=== PATIENT | male | born 1995 | race Caucasian/White ===

== ENCOUNTER 2024-10-15 10:21 | Day surgery (SDC) | payer OTHER, SELFPAY ==
[2024-10-09 12:05] VITALS: BMI 25.1
[2024-10-15 11:11] VITALS: BP 131/73; PULSE 67; RESP 16; TEMP 36.8; O2SAT 100; BMI 24.9
[2024-10-15] MEDS: LACTATED RINGERS 1,000 ML 42 ML IV (11:19)
[2024-10-15] MEDS: OXYMETAZOLINE NASAL SPRAY 30 ML 2 SPRAYS NASAL (11:19)
[2024-10-15] MEDS: ACETAMINOPHEN 325 MG TABLET 975 MG PO (11:35)
--- NOTE | 2024-10-15 11:53 | PM.PREOP ---
Pre-operative Note Interval Note History & Physical reviewed/Exam performed by Physician: Yes Changes to H&P: No
--- NOTE | 2024-10-15 11:53 | PM.HP.1 ---
History of Present Illness History of Present Illness Date Patient Seen: 10/15/24 Time Patient Seen: 11:53 Chief complaint: SDC Narrative: 29-year-old male last seen in clinic 08/18/2025 for chronic nasal obstruction with obvious right septal deviation, inferior turbinate hypertrophy and some internal nasal valve restriction presents for septoplasty, turbinate reduction and possible internal nasal valve release. No interval health changes, wishes to proceed. [facility] Medical History Nasal septal deviation Nasal obstruction Social History household members: spouse Smoking Status: Never smoker alcohol intake: former Meds Home Medications and Allergies Home Medications Medication Instructions Recorded Confirmed Type No Known Home Medications 10/09/24 10/09/24 History Allergies Allergy/AdvReac Type Severity Reaction Status Date / Time No Known Drug Allergies Allergy Verified 10/15/24 11:09 Review of Systems Review of Systems Narrative: Negative except as listed in the HPI Exam Vital Signs (past 8 hours): - 10/15/24 11:11 Temperature 98.3 F Pulse Rate 67 Respiratory Rate 16 Blood Pressure 131/73 Pulse Oximetry 100 Oxygen Delivery Method Room Air Oxygen Delivery Method Room Air Narrative Exam Narrative: Well-developed well-nourished, heart regular rate and rhythm without murmur, lungs clear to auscultation bilaterally Assessment & Plan Assessment & Plan narrative: Assessment: Nasal airway obstruction, septal deviation, inferior turbinate hypertrophy, nasal valve blockage, allergic rhinitis Plan: Following discussion of the material risks benefits complications and alternatives, the patient elected to proceed. Time-Based Coding :: [TOTAL MINUTES] spent with patient and on the chart (including review of chart, obtaining history, exam, reviewing outside data, placing orders, documenting exam and treatment plan, and counseling patient) on [DATE].
--- NOTE | 2024-10-15 11:54 | PM.OP.1 ---
Operative Date/Time/Diagnoses Date of procedure: 10/15/24 Time of procedure: 13:31 Pre-op diagnosis: Nasal airway obstruction, septal deviation, inferior turbinate hypertrophy, internal nasal valve restriction Post-op diagnosis: same (improved nasal valve area after septoplasty) Procedure & Clinicians Procedure: 1. Septoplasty 2. Bilateral inferior turbinate reduction via intramural cautery Same procedure as scheduled: Yes Indications: 29 Year old with the above diagnoses incompletely managed with medical therapy presents for the above procedure. Following discussion of the material risks benefits complications and alternatives, the patient elected to proceed. Surgeon: Ben Mercado Click Yes if Unassisted: Yes Anesthesia Type: General and Local Operative Notes Findings: 3+ right septal deviation including long low spur, primarily anterior, [id number]-right inferior turbinate hypertrophy. Right internal nasal valve restriction improved at completion, no other intervention necessary. Estimated Blood Loss (mL): 30 Procedure in detail: Following identification and confirmation of consent as well as preoperative Afrin nasal spray, the patient was brought to the operating room suite and placed in the supine position. General endotracheal anesthesia was administered. I infiltrated the septum widely bilaterally with 1% lidocaine 1 100,000 epinephrine followed by temporary packing with cotton with Afrin and 4% lidocaine. Following sterile prep and drape, the packing was removed and I performed a right amena-transfixion incision, elevated the right mucoperichondrial and mucoperiosteal flap. I disarticulated near the bony/cartilaginous junction and elevated the left mucoperiosteal flap. Deviated portions of the perpendicular plate of the ethmoid and vomer were resected. The residual quadrilateral cartilage was further straightened by trimming it inferiorly as well as reducing the maxillary crest. A 2 mm strip of cartilage paralleling the residual 1 cm dorsal and caudal strut was resected to further straighten the quadrilateral cartilage. The hemitransfixion incision was closed with interrupted 5 0 chromic followed by a running 4 0 plain gut mattress suture to reapproximate the septal flaps. At case completion, 20/1000th of an inch silastic splints were placed bilaterally, sutured anteriorly with a single 4 0 nylon. The scroll region had been previously infiltrated with local anesthetic and a 15 blade incised the caudal border of the upper lateral cartilage. I elevated the mucosa off the posterior surface and 2 mm of cartilage was resected with forceps. The mucosa was reapproximated with interrupted 5 0 chromic, effectively increasing the area of the internal nasal valve. The head of each inferior turbinate had been previously infiltrated with additional local anesthetic and a 25 gauge spinal needle was used to impale the length of the turbinate, with cautery on a setting of 15 activated on slow withdrawal over 2 passes. The turbinates were then outfractured. The procedure completed, sponge and needle counts were correct and the patient was extubated in the operating room and taken to recovery room in stable condition without known complication. Postoperative care: Nasal saline every hour while awake, Polysporin to the nostrils at all times, begin irrigations t.i.d. beginning pod 1. Humidifier at the bedside blowing on the face. Tylenol alternating with Advil for pain control, oxycodone if necessary for breakthrough pain. Complications: none Post-operative Condition: stable Disposition: same day surgery Plan for aftercare: Nasal saline every hour while awake, begin irrigations t.i.d. tomorrow if desired. Polysporin to the nostrils at all times, Tylenol alternating with Advil for pain control, oxycodone for breakthrough pain. Elevate head of bed, no nose blowing, no straining for 2 weeks. Ice directly under the nose on the upper lip has tolerated 24-48 hours at a minimum. Follow-up in 1 week for nasal splint removal.
--- NOTE | 2024-10-15 12:31 | SUR.OPER ---
Supine on padded OR bed, head on gel pad, arms padded and tucked at sides, legs uncrossed, safety belt at thigh, tape over blanket over lower legs .
[2024-10-15] MEDS: LIDOCAINE 1% W/EPI 20ML 20 ML INJ (12:36)
[2024-10-15] MEDS: BACITRACIN OINT 0.9 GM PCKT 1 APPLIC TOP (12:38)
[2024-10-15] MEDS: LIDOCAINE 4% SOLN 50 ML 20 ML TOP (12:39)
[2024-10-15 13:40] VITALS: BP 144/87; PULSE 79; RESP 12; TEMP 36.2; O2SAT 98
[2024-10-15 13:45] VITALS: BP 144/99; PULSE 63; RESP 12; O2SAT 95
[2024-10-15 13:50] VITALS: BP 128/83; PULSE 66; RESP 12; O2SAT 100
[2024-10-15 14:00] VITALS: BP 150/97; PULSE 62; RESP 13; O2SAT 100
[2024-10-15 14:10] VITALS: BP 147/93; PULSE 65; RESP 14; O2SAT 100
[2024-10-15] MEDS: BENZOCAINE/MENTHOL 1 LOZ PKT 1 EACH PO (14:28)
== END 2024-10-15 14:54 | disposition home or self-care (01) ==
PROVIDERS: Family Provider Student in an Organized Health Care Education/Training Program; PCP Student in an Organized Health Care Education/Training Program; Referring Provider Otolaryngology; Visit Provider Otolaryngology
PROC: (CPT 30520; principal; 2024-10-15 11:30)
DX: J34.89 Other specified disorders of nose and nasal sinuses (principal); J34.2 Deviated nasal septum; J34.3 Hypertrophy of nasal turbinates
CPT/HCPCS: 30520; 30802; J1100; J2250; J2405; J2704; J3010

== ENCOUNTER → 2025-01-14 19:23 | Outpatient (CLI) | payer OTHER, SELFPAY ==
--- NOTE | 2025-01-14 | DI.MRI.S_ITS ---
PROCEDURE: MR HIP LT WO CON INDICATIONS: lt hip pain TECHNIQUE: Noncontrast coronal T1 spin echo and STIR through the bony pelvis. Coronal and axial T2 fast spin echo with fat saturation, sagittal T1 spin echo, and oblique axial T2 fast spin echo with fat saturation through the hip. COMPARISON: None. FINDINGS: Image quality: Excellent. Bones and joints: Bone marrow of the pelvic ring and proximal femurs show normal signal throughout. No intraosseous lesions or fractures. No avascular necrosis of the femoral heads. The visualized lower lumbar spine appears normally aligned. Tendons and ligaments: Low-grade partial-thickness tear involving distal left gluteus medius tendon at its insertion on greater trochanter is seen extending to musculotendinous junction. Distal left gluteus minimus tendinosis at its insertion on greater trochanter is also seen. No fluid distension of trochanteric bursa. The nearby proximal iliotibial band also appears intact. The iliopsoas tendon appears intact, without adjacent bursal fluid collections or evidence for impingement syndrome. Mild tendinosis involving origins of left hamstring tendons at ischial tuberosity. Labrum and cartilage: Cartilage surface of the femoral head appears of normal thickness. There is focal area of T2 hyperintense signal and contour irregularity involving superior anterior left acetabular labrum consistent with superior anterior labral tear. Soft tissues: Visualized muscles demonstrate normal bulk and internal signal. Quadratus femoris muscle demonstrates no internal edema to suggest ischiofemoral impingement. The proximal sciatic neurovascular bundle appears normal adjacent to the hamstring tendons. No free pelvic fluid. Bladder wall thickness is normal. Genitourinary structures and bowel loops appear normal where visualized. IMPRESSION: 1. No marrow edema. No pelvic or hip fracture. No evidence of avascular necrosis of femoral head. 2. Low-grade partial-thickness tear involving distal left gluteus medius tendon extending to musculotendinous junction. Distal left gluteus minimus tendinosis. Tendinosis involving left hamstring tendon origins at ischial tuberosity. 3. Suggestion of superior anterior left acetabular labral tear. Dictated by: Arnie Zamora M.D. on 01/16/2025 at 20:07 Approved by: Arnie Zamora M.D. on 01/16/2025 at 20:11
== END ==
PROVIDERS: Family Provider Student in an Organized Health Care Education/Training Program; PCP Student in an Organized Health Care Education/Training Program; Referring Provider Student in an Organized Health Care Education/Training Program; Visit Provider Student in an Organized Health Care Education/Training Program
DX: S76.012A Strain of muscle, fascia and tendon of left hip, initial encounter (principal); M25.552 Pain in left hip
CPT/HCPCS: 73721

== ENCOUNTER 2025-02-03 07:30 | Outpatient (RCR) | payer OTHER, SELFPAY ==
--- NOTE | 2024-10-07 15:58 | PT.OIE ---
Current Diagnoses Low back pain, unspecified (10/07/24) Visit Care Team Role Provider Type Kev Chiu MD Attending Provider Non-Staff Family Provider Primary Care Provider Referring Provider Specialty: Medical Address: [address] [place] [address], [facility] Email: Physical Therapy Initial Evaluation PT-OP-A Visit Information Start: 10/07/24 12:59 Freq: Status: Active Protocol: Document 10/07/24 12:59 NM (Rec: 10/07/24 13:49 NM [id number]) Out-Patient Physical Therapy Visit Information Visit Information Visit Type Initial Evaluation Visit Start Time 13:03 Visit Stop Time 13:45 Visit Number 10/04 Evaluation Information Evaluation Date 10/07/24 PT-OP-B Current Condition Start: 10/07/24 12:59 Freq: Status: Active Protocol: Document 10/07/24 12:59 NM (Rec: 10/07/24 13:49 NM [id number]) Current Condition History of Current Condition Onset Date 2021-present History of Current Condition Pt presents to clinic with L hip sciatica in deep glute region and anterior L hip pain . 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 Original onset of pain occured while doing lots of physical training and heavy lifting; he thinks he blew out his back for 1 month while deadlifting, gradual improvement. Occurred November 2021. Has had significant past PT and work up via imaging, chiropractors, injections. Previously had numbness/ tingling into LLE in glute but no longer has same neural symptoms. Improvement has occurred with move to less stressful job. In November 2023, he was doing single leg squats on an elevated surface, felt like the hip gave out deep in the hip. Worse with sprinting, lack of motion. Denies clicking, popping, and locking . He is planning to get a referral for ITB pain. Participates in ultra running. Managed by reducing lifting ( squatting and deadlifting), warming up. Trainin-5 hr running (intervals, running,) was doing strength training but has since tapered per working with personal carer Prior Treatments and Tests Pt reports has had multiple rounds of imaging for both hip and back Current Functional Impairments (Reported) Functional Limitations- Recreation/ lifting, running Hobbies PT-OP-C Subjective Start: 10/07/24 12:59 Freq: Status: Active Protocol: Document 10/07/24 12:59 NM (Rec: 10/07/24 13:49 NM [id number]) OP-PT Subjective Patient Comments Patient Comments Pt consents to participate in PT evaluation Patient Questionnaires Oswestry Low Back Index Oswestry Score 12/100 (12% impairment) OP-PT Pain Assessment Location low back Pain Location Details posterior hip, deep Description Aching Frequency Intermittent Radiating Location shooting pain Pain Aggravating Factors Activity,Exercise,Sitting Other Pain Aggravating Factors trunk flexion- fully tensioned ; sitting Pain Alleviating Factors Cold,Heat Other Pain Alleviating Factors shifting position Comments Pain Comments L hip worse with sitting, squat, deadlift, running, sprinting; anterior hip pain, deep in joint; non-palpable PT-OP-E Functional Tests Start: 10/07/24 12:59 Freq: Status: Active Protocol: Document 10/07/24 12:59 NM (Rec: 10/07/24 13:49 NM [id number]) Functional Tests Squat Test Score hip IR with squat, valgus/ instability with SL squat; improved w/ less depth Comments 2 ea PT-OP-F Manual Assessment Start: 10/07/24 12:59 Freq: Status: Active Protocol: Document 10/07/24 12:59 NM (Rec: 10/07/24 16:24 NM [id number]) Manual Assessments Soft Tissue Assessment Soft Tissue Mobility Assessment L sided lumbar paraspinals hypotrophy L hip flexor tightness, TFL Joint Mobility Assessment Joint Mobility Assessment Hypomobility lumbar paraspinals with PA springing. Limitations in L hip AROM and PROM especially into hip IR and ER; bony end feel. PT-OP-G Mobility & Gait Start: 10/07/24 12:59 Freq: Status: Active Protocol: Document 10/07/24 12:59 NM (Rec: 10/07/24 16:24 NM [id number]) OP Gait Assessment Gait Gait Assistance Required: Independent Distance (Feet) 150 Comments Gait Comments Wide based gait, demos decreased L hip/lumbopelvic mobility during swing, pronation PT-OP-J Posture/Palpation/Skin Start: 10/07/24 12:59 Freq: Status: Active Protocol: Document 10/07/24 12:59 NM (Rec: 10/07/24 16:24 NM [id number]) Posture Evaluation Position Standing Head/C-Spine Posture Forward Head Shoulder Posture (L) Rounded,(R) Rounded Knee Posture (L) Genu Valgus,(R) Genu Valgus Ankle/Foot Posture (L) Pronated,(R) Pronated Foot Arch (L) Low Arch,(R) Low Arch Palpation Assessment Location L hip Palpation Details Tightness of hip flexors especially TFL, iliopsoas lumbar spine Palpation Details No tenderness PSIS, spinous processes, paraspinals No tenderness to glutes/ piriformis, or along sciatic nerve PT-OP-K Range of Motion Start: 10/07/24 12:59 Freq: Status: Active Protocol: Document 10/07/24 12:59 NM (Rec: 10/07/24 13:49 NM [id number]) Lumbar Spine Range of Motion Lumbar Spine Active Percentage Flexion 100 Extension 100 Rotation Left 100 Rotation Right 100 Lateral Flexion Left 100 Lateral Flexion Right 100 Comments deep w/ flexion hip pain with ext and rotation L Hip Goniometric Range of Motion Hip Right Flexion w/Knee Flexed 125 Internal Rotation 35 External Rotation 30 Left Flexion w/Knee Flexed 120 Internal Rotation 22 External Rotation 30 Comments hip IR limited and mildly painful PT-OP-L Special Tests Start: 10/07/24 12:59 Freq: Status: Active Protocol: Document 10/07/24 12:59 NM (Rec: 10/07/24 13:49 NM [id number]) Special Tests Lumbar Spine Special Tests Slump Test Results + Ribera/quadrant Test Results - Hip Special Tests FADIR Test Results - Anterior Labral Test Test Results - Posterior Labral Test Test Results - Scour Test Test Results - PT-OP-M Strength Start: 10/07/24 12:59 Freq: Status: Active Protocol: Document 10/07/24 12:59 NM (Rec: 10/07/24 13:49 NM [id number]) Trunk Strength Trunk Manual Muscle Testing Comments 32 sec side plank B; 60 sec plank; 5/5 MMT trunk flexion Hip Strength Hip Manual Muscle Testing Right Flexion (L2) 4 Good Extension (S1) 5 Normal Abduction 5 Normal Adduction 5 Normal External Rotation 4 Good Internal Rotation 4 Good Left Flexion (L2) 4 Good Extension (S1) 4 Good Abduction 4+ Good+ Adduction 4+ Good+ External Rotation 4- Good- Internal Rotation 4- Good- Comments pain with IR; irritation of hip flexors with flex and ext Knee Strength Knee Manual Muscle Testing Right Flexion (S2) 5 Normal Extension (L3) 5 Normal Left Flexion (S2) 5 Normal Extension (L3) 5 Normal PT-OP-Q Treatments Start: 10/07/24 12:59 Freq: Status: Active Protocol: Document 10/07/24 12:59 NM (Rec: 10/07/24 16:24 NM [id number]) Self-Care/Home Management Treatment Education Patient Education Joint Protection Other Education 8 minutes - education on shoewear for running, stability training to supplement running. Recommended that pt transition to barefoot running shoes or standard running shoes vs daily switching between several sole types. Recommendation for running form evaluation. Extensive education and discussion on spinal anatomy, relation to hips/foot, stability and power training. PT-OP-T Assessment and Plan Start: 10/07/24 12:59 Freq: Status: Active Protocol: Document 10/07/24 12:59 NM (Rec: 10/07/24 13:49 NM [id number]) Physical Therapy Assessment Rehab Potential Rehabilitation Potential Good Evaluation Complexity Number of Personal Factors/Comorbidities 0 Number of Body Systems Impaired 1-2 Clinical Presentation at Evaluation Stable Impairments Impairments Activity Tolerance,Balance, Functional Activities, Functional Mobility,Gait, Integument,Pain,Posture,ROM, Sensation,Soft Tissue Mobility ,Strength Other Concerns Age Related Concerns PMH: septoplasty Goals Three Impairment pain with squatting Half-Way Goal (LTG) Pt will demo improved stability with 5/10 reps of single leg squat B in order to demonstrate improved hip ROM and stability for running LTG Duration 12 weeks Two Impairment L hip rotation impaired: IR 22 deg, ER 30 deg Half-Way Goal (LTG) Pt will increase L hip IR >30 deg and L hip ER >35 deg in order to improve hip mobility for running LTG Duration 12 weeks One Impairment pain with sleeping and sitting tolerance Curb Attendant Goal (LTG) Pt will decrease SHARAN <12% in order to demonstrate improved symptom management LTG Duration 12 weeks Assessment Summary Assessment Pt is a 29 y.o. presenting with chronic low back pain with radicular symptoms and L hip pain beginning in 2021 and 2023, respectively, following lifting accidents. 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 He demos full trunk ROM and good trunk strength. He does have significant limitations in L hip mobility and moderate differences in hip strength between R and L sides, which likely influences his back pain. L single leg strength during squats is also significantly variable compared to R side. Pt is positive for neural tension with slump testing but not straight leg raise. His symptoms are likely mechanical from previous injuries and further impacted by poor hip and lumbopelvic mobility. Pt participates in running recreationally and works with a personal carer, which impacts ability. PT educated pt on exam findings and plan of care. Pt would benefit from skilled PT for progressive mobility and strengthening for improved pain management. Physical Therapy Plan Frequency and Duration Frequency of Treatment 1x/Week Duration of treatment (weeks) 12 Plan of Care Start Date 10/07/24 Plan of Care End Date 01/01/25 Therapeutic Interventions Therapeutic Interventions Balance Training,Gait Training ,Home Exercise Program,Joint Mobilizations,Manual Therapy, Neuromuscular Re-education, Orthotic/Prosthetic Management ,Patient/Caregiver Education, Self-Care/Home Management, Sensory Integration,Soft Tissue Mobilization,Taping, Therapeutic Activities, Therapeutic Exercises Modalities Cold Pack/Ice Massage,Electric Stimulation,Hot Packs, Traction- Mechanical, Ultrasound Next Visit Focus/Plan Next Note Type Treatment Note Next Visit Plan Hip mobilizations, lumbar mobilizations. Assess SIJ Self hip jt mobilizations with band. Hip IR and ER at end range
--- NOTE | 2024-10-07 15:59 | PT.OPPOC ---
Physical, Occupational & Speech Therapy At [facility] Current Diagnoses Low back pain, unspecified (10/07/24) Visit Care Team Role Provider Type Kev Chiu MD Attending Provider Non-Staff Family Provider Primary Care Provider Referring Provider Specialty: Medical Address: [address] [place] [address], [id number] Email: Plan Of Care PT-OP-B Current Condition Start: 10/07/24 12:59 Freq: Status: Active Protocol: Document 10/07/24 12:59 NM (Rec: 10/07/24 13:49 NM [id number]) Current Condition History of Current Condition Onset Date 2021-present History of Current Condition Pt presents to clinic with L hip sciatica in deep glute region and anterior L hip pain . 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 Original onset of pain occured while doing lots of physical training and heavy lifting; he thinks he blew out his back for 1 month while deadlifting, gradual improvement. Occurred November 2021. Has had significant past PT and work up via imaging, chiropractors, injections. Previously had numbness/ tingling into LLE in glute but no longer has same neural symptoms. Improvement has occurred with move to less stressful job. In November 2023, he was doing single leg squats on an elevated surface, felt like the hip gave out deep in the hip. Worse with sprinting, lack of motion. Denies clicking, popping, and locking . He is planning to get a referral for ITB pain. Participates in ultra running. Managed by reducing lifting ( squatting and deadlifting), warming up. Trainin-5 hr running (intervals, running,) was doing strength training but has since tapered per working with boxing trainer Prior Treatments and Tests Pt reports has had multiple rounds of imaging for both hip and back Current Functional Impairments (Reported) Functional Limitations- Recreation/ lifting, running Hobbies PT-OP-T Assessment and Plan Start: 10/07/24 12:59 Freq: Status: Active Protocol: Document 10/07/24 12:59 NM (Rec: 10/07/24 13:49 NM [id number]) Physical Therapy Assessment Rehab Potential Rehabilitation Potential Good Evaluation Complexity Number of Personal Factors/Comorbidities 0 Number of Body Systems Impaired 1-2 Clinical Presentation at Evaluation Stable Impairments Impairments Activity Tolerance,Balance, Functional Activities, Functional Mobility,Gait, Integument,Pain,Posture,ROM, Sensation,Soft Tissue Mobility ,Strength Other Concerns Age Related Concerns PMH: septoplasty Goals Three Impairment pain with squatting Fdc Goal (LTG) Pt will demo improved stability with 5/10 reps of single leg squat B in order to demonstrate improved hip ROM and stability for running LTG Duration 12 weeks Two Impairment L hip rotation impaired: IR 22 deg, ER 30 deg Information Resource Consultant Goal (LTG) Pt will increase L hip IR >30 deg and L hip ER >35 deg in order to improve hip mobility for running LTG Duration 12 weeks One Impairment pain with sleeping and sitting tolerance Fdc Goal (LTG) Pt will decrease SHARAN <12% in order to demonstrate improved symptom management LTG Duration 12 weeks Assessment Summary Assessment Pt is a 29 y.o. presenting with chronic low back pain with radicular symptoms and L hip pain beginning in 2021 and 2023, respectively, following lifting accidents. 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 He demos full trunk ROM and good trunk strength. He does have significant limitations in L hip mobility and moderate differences in hip strength between R and L sides, which likely influences his back pain. L single leg strength during squats is also significantly variable compared to R side. Pt is positive for neural tension with slump testing but not straight leg raise. His symptoms are likely mechanical from previous injuries and further impacted by poor hip and lumbopelvic mobility. Pt participates in running recreationally and works with a boxing trainer, which impacts ability. PT educated pt on exam findings and plan of care. Pt would benefit from skilled PT for progressive mobility and strengthening for improved pain management. Physical Therapy Plan Frequency and Duration Frequency of Treatment 1x/Week Duration of treatment (weeks) 12 Plan of Care Start Date 10/07/24 Plan of Care End Date 01/01/25 Therapeutic Interventions Therapeutic Interventions Balance Training,Gait Training ,Home Exercise Program,Joint Mobilizations,Manual Therapy, Neuromuscular Re-education, Orthotic/Prosthetic Management ,Patient/Caregiver Education, Self-Care/Home Management, Sensory Integration,Soft Tissue Mobilization,Taping, Therapeutic Activities, Therapeutic Exercises Modalities Cold Pack/Ice Massage,Electric Stimulation,Hot Packs, Traction- Mechanical, Ultrasound Next Visit Focus/Plan Next Note Type Treatment Note Next Visit Plan Hip mobilizations, lumbar mobilizations. Assess SIJ Self hip jt mobilizations with band. Hip IR and ER at end range Plan of Care Dates Plan of Care Start Date 10/07/24 Plan of Care End Date 01/01/25 Electronically Signed by: Ramila Ku, PT 10/09/24 1000 If you are in agreement with this Plan of Care, please return a signed and dated copy. I have reviewed this Plan of Care and certify that the skilled therapy services above are required to meet the patient?s needs. Physician Signature Date Printed Name and Credentials Clinical Instructor Signature Printed Name and Credentials
--- NOTE | 2024-10-08 16:54 | PT-OP ANOTE ---
PT called as pt asking about exercises, reminded of education for shoes provided during evaluation, will start HEP next session. Ok to perform regular exercise routine as long as does not make hip or back feel worse
--- NOTE | 2024-10-14 12:51 | PT.OTN ---
Current Diagnoses Low back pain, unspecified (10/14/24) Physical Therapy Treatment Note PT-OP-A Visit Information Start: 10/07/24 12:59 Freq: Status: Active Protocol: Document 10/14/24 07:28 NM (Rec: 10/14/24 08:18 NM [id number]) Out-Patient Physical Therapy Visit Information Visit Information Visit Type Treatment Note Visit Start Time 07:30 Visit Stop Time 08:15 Visit Number 11/04 Evaluation Information Evaluation Date 10/07/24 PT-OP-B Current Condition Start: 10/07/24 12:59 Freq: Status: Active Protocol: Document 10/07/24 12:59 NM (Rec: 10/07/24 13:49 NM [id number]) Current Condition History of Current Condition Onset Date 2021-present History of Current Condition Pt presents to clinic with L hip sciatica in deep glute region and anterior L hip pain . 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 Original onset of pain occured while doing lots of physical training and heavy lifting; he thinks he blew out his back for 1 month while deadlifting, gradual improvement. Occurred November 2021. Has had significant past PT and work up via imaging, chiropractors, injections. Previously had numbness/ tingling into LLE in glute but no longer has same neural symptoms. Improvement has occurred with move to less stressful job. In November 2023, he was doing single leg squats on an elevated surface, felt like the hip gave out deep in the hip. Worse with sprinting, lack of motion. Denies clicking, popping, and locking . He is planning to get a referral for ITB pain. Participates in ultra running. Managed by reducing lifting ( squatting and deadlifting), warming up. Trainin-5 hr running (intervals, running,) was doing strength training but has since tapered per working with new product trainer Prior Treatments and Tests Pt reports has had multiple rounds of imaging for both hip and back Current Functional Impairments (Reported) Functional Limitations- Recreation/ lifting, running Hobbies PT-OP-C Subjective Start: 10/07/24 12:59 Freq: Status: Active Protocol: Document 10/14/24 07:28 NM (Rec: 10/14/24 08:18 NM [id number]) OP-PT Subjective Patient Comments Patient Comments Pt reports stretching causes some sciatic type pain. Reports no hip pain since sprints 2 weeks ago. No other changes since evaluation. PT-OP-E Functional Tests Start: 10/07/24 12:59 Freq: Status: Active Protocol: Document 10/07/24 12:59 NM (Rec: 10/07/24 13:49 NM [id number]) Functional Tests Squat Test Score hip IR with squat, valgus/ instability with SL squat; improved w/ less depth Comments 2 ea PT-OP-F Manual Assessment Start: 10/07/24 12:59 Freq: Status: Active Protocol: Document 10/07/24 12:59 NM (Rec: 10/07/24 16:24 NM [id number]) Manual Assessments Soft Tissue Assessment Soft Tissue Mobility Assessment L sided lumbar paraspinals hypotrophy L hip flexor tightness, TFL Joint Mobility Assessment Joint Mobility Assessment Hypomobility lumbar paraspinals with PA springing. Limitations in L hip AROM and PROM especially into hip IR and ER; bony end feel. PT-OP-G Mobility & Gait Start: 10/07/24 12:59 Freq: Status: Active Protocol: Document 10/07/24 12:59 NM (Rec: 10/07/24 16:24 NM [id number]) OP Gait Assessment Gait Gait Assistance Required: Independent Distance (Feet) 150 Comments Gait Comments Wide based gait, demos decreased L hip/lumbopelvic mobility during swing, pronation PT-OP-J Posture/Palpation/Skin Start: 10/07/24 12:59 Freq: Status: Active Protocol: Document 10/07/24 12:59 NM (Rec: 10/07/24 16:24 NM [id number]) Posture Evaluation Position Standing Head/C-Spine Posture Forward Head Shoulder Posture (L) Rounded,(R) Rounded Knee Posture (L) Genu Valgus,(R) Genu Valgus Ankle/Foot Posture (L) Pronated,(R) Pronated Foot Arch (L) Low Arch,(R) Low Arch Palpation Assessment Location L hip Palpation Details Tightness of hip flexors especially TFL, iliopsoas lumbar spine Palpation Details No tenderness PSIS, spinous processes, paraspinals No tenderness to glutes/ piriformis, or along sciatic nerve PT-OP-K Range of Motion Start: 10/07/24 12:59 Freq: Status: Active Protocol: Document 10/07/24 12:59 NM (Rec: 10/07/24 13:49 NM [id number]) Lumbar Spine Range of Motion Lumbar Spine Active Percentage Flexion 100 Extension 100 Rotation Left 100 Rotation Right 100 Lateral Flexion Left 100 Lateral Flexion Right 100 Comments deep w/ flexion hip pain with ext and rotation L Hip Goniometric Range of Motion Hip Right Flexion w/Knee Flexed 125 Internal Rotation 35 External Rotation 30 Left Flexion w/Knee Flexed 120 Internal Rotation 22 External Rotation 30 Comments hip IR limited and mildly painful PT-OP-L Special Tests Start: 10/07/24 12:59 Freq: Status: Active Protocol: Document 10/07/24 12:59 NM (Rec: 10/07/24 13:49 NM [id number]) Special Tests Lumbar Spine Special Tests Slump Test Results + Ribera/quadrant Test Results - Hip Special Tests FADIR Test Results - Anterior Labral Test Test Results - Posterior Labral Test Test Results - Scour Test Test Results - PT-OP-M Strength Start: 10/07/24 12:59 Freq: Status: Active Protocol: Document 10/07/24 12:59 NM (Rec: 10/07/24 13:49 NM [id number]) Trunk Strength Trunk Manual Muscle Testing Comments 32 sec side plank B; 60 sec plank; 5/5 MMT trunk flexion Hip Strength Hip Manual Muscle Testing Right Flexion (L2) 4 Good Extension (S1) 5 Normal Abduction 5 Normal Adduction 5 Normal External Rotation 4 Good Internal Rotation 4 Good Left Flexion (L2) 4 Good Extension (S1) 4 Good Abduction 4+ Good+ Adduction 4+ Good+ External Rotation 4- Good- Internal Rotation 4- Good- Comments pain with IR; irritation of hip flexors with flex and ext Knee Strength Knee Manual Muscle Testing Right Flexion (S2) 5 Normal Extension (L3) 5 Normal Left Flexion (S2) 5 Normal Extension (L3) 5 Normal PT-OP-Q Treatments Start: 10/07/24 12:59 Freq: Status: Active Protocol: Document 10/14/24 07:28 NM (Rec: 10/14/24 08:18 NM [id number]) Therapeutic Exercises Supine Exercises hip flexion Side bilateral Resistance level 4 band Reps/Minutes 2x10 ea Sidelying Exercises hip IR Sidelying Exercise Name from elevated block between legs- HEP Side bilateral Reps/Minutes 15 c/ 2 hold at end range Other Exercises hip mobility band Other Exercise Name 1. hip ADD rock c/ lat glide, 2. AP c/ hip ext, 3. quad rock IR c/ infglide Side bilateral Resistance level 5 band tensioned at table Equipment Used mat on floor Reps/Minutes 10 ea (quad IR also Comments PT cued set up; issued HEP w/o HO, pictures on pt phone Manual Therapy Treatment Consent Patient gave verbal consent for manual Yes treatment Soft Tissue Mobilization lumbar spine Body Location paraspinals Mobilization Type Rolling,Strumming Intensity/Depth Superficial Body Position Prone Comments No tenderness or tightness L hip Body Location hip flexors, psoas, glutes, piriformis Mobilization Type Rolling,Strumming Intensity/Depth Moderate Comments Hooklying and prone. L > R tightness at hip flexors w/ assessment Joint Mobilizations Hips Joint c/ mobility strap Direction PA, AP, inf, lat Grade IV Reps/Duration 2x30 ea Comments L hip only today. Biased into rotation PT-OP-T Assessment and Plan Start: 10/07/24 12:59 Freq: Status: Active Protocol: Document 10/14/24 07:28 NM (Rec: 10/14/24 08:18 NM [id number]) Physical Therapy Assessment Goals Three Impairment pain with squatting Half-Way Goal (LTG) Pt will demo improved stability with 5/10 reps of single leg squat B in order to demonstrate improved hip ROM and stability for running LTG Duration 12 weeks Two Impairment L hip rotation impaired: IR 22 deg, ER 30 deg Half-Way Goal (LTG) Pt will increase L hip IR >30 deg and L hip ER >35 deg in order to improve hip mobility for running LTG Duration 12 weeks One Impairment pain with sleeping and sitting tolerance Half-Way Goal (LTG) Pt will decrease SHARAN <12% in order to demonstrate improved symptom management LTG Duration 12 weeks Assessment Summary Assessment Pt has restrictions at posterior hip, most prevalent with hip IR active and hip ER positioning in prone. Demos iliopsoas tightness. Initiated mobility training with bands followed by strengthening. Good response to mobility; progresses quickly with strengthening but more limited L hip than R with end range IR activation. No hip or back pain with concentric hip flexion but occurs with eccentric hip flexion and at anterior hip with end range extension. Pt would continue to benefit from skilled PT for progressive lumbopelvic mobility and specific hip strengthening in order to decrease pain and improve ability to participate in lifting/running. Physical Therapy Plan Frequency and Duration Frequency of Treatment 1x/Week Duration of treatment (weeks) 12 Plan of Care Start Date 10/07/24 Plan of Care End Date 01/01/25 Therapeutic Interventions Therapeutic Interventions Balance Training,Gait Training ,Home Exercise Program,Joint Mobilizations,Manual Therapy, Neuromuscular Re-education, Orthotic/Prosthetic Management ,Patient/Caregiver Education, Self-Care/Home Management, Sensory Integration,Soft Tissue Mobilization,Taping, Therapeutic Activities, Therapeutic Exercises Modalities Cold Pack/Ice Massage,Electric Stimulation,Hot Packs, Traction- Mechanical, Ultrasound Next Visit Focus/Plan Next Note Type Treatment Note Next Visit Plan Assess SIJ. promote hip ext, decreased post impingement. prone ER/IR vs sitting, hip abd c/ side plank, ecc hip flexo, pallof, single leg stability Self hip jt mobilizations with band. Hip IR and ER at end range
--- NOTE | 2024-10-19 13:38 | PT-OP ANOTE ---
This patient is scheduled with this PT on 10/28/24. PT reviews chart and notes that pt had a surgery on 10/15/24, the day after last OPPT appointment. Left communication with primary PT.
--- NOTE | 2024-10-19 16:41 | PT-OP ANOTE ---
PT called and spoke to pt as he just had surgery to correct a deviated septum. Pt states he was informed that he is not able to run x 1 week and should not do anything to increase blood pressure or heart rate too high. PT asked for clearance in writing or phone call from ENT if allowed to return to PT and with start date. Educated to avoid HEP at this time until cleared
--- NOTE | 2024-10-28 14:30 | PT.OTN ---
Current Diagnoses Low back pain, unspecified (10/28/24) Physical Therapy Treatment Note PT-OP-A Visit Information Start: 10/07/24 12:59 Freq: Status: Active Protocol: Document 10/28/24 13:45 MB (Rec: 10/28/24 14:29 MB [id number]) Out-Patient Physical Therapy Visit Information Visit Information Visit Type Treatment Note Visit Start Time 13:45 Visit Stop Time 14:25 Visit Number 12/02 Evaluation Information Evaluation Date 10/07/24 PT-OP-B Current Condition Start: 10/07/24 12:59 Freq: Status: Active Protocol: Document 10/07/24 12:59 NM (Rec: 10/07/24 13:49 NM [id number]) Current Condition History of Current Condition Onset Date 2021-present History of Current Condition Pt presents to clinic with L hip sciatica in deep glute region and anterior L hip pain . 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 Original onset of pain occured while doing lots of physical training and heavy lifting; he thinks he blew out his back for 1 month while deadlifting, gradual improvement. Occurred November 2021. Has had significant past PT and work up via imaging, chiropractors, injections. Previously had numbness/ tingling into LLE in glute but no longer has same neural symptoms. Improvement has occurred with move to less stressful job. In November 2023, he was doing single leg squats on an elevated surface, felt like the hip gave out deep in the hip. Worse with sprinting, lack of motion. Denies clicking, popping, and locking . He is planning to get a referral for ITB pain. Participates in ultra running. Managed by reducing lifting ( squatting and deadlifting), warming up. Trainin-5 hr running (intervals, running,) was doing strength training but has since tapered per working with physical fitness trainer Prior Treatments and Tests Pt reports has had multiple rounds of imaging for both hip and back Current Functional Impairments (Reported) Functional Limitations- Recreation/ lifting, running Hobbies PT-OP-C Subjective Start: 10/07/24 12:59 Freq: Status: Active Protocol: Document 10/28/24 13:45 MB (Rec: 10/28/24 14:29 MB [id number]) OP-PT Subjective Patient Comments Patient Comments Pt had deviated septum surgery 2 weeks ago and he is recovering well. He is through precautions. He has con't with PT exercises. PT-OP-E Functional Tests Start: 10/07/24 12:59 Freq: Status: Active Protocol: Document 10/07/24 12:59 NM (Rec: 10/07/24 13:49 NM [id number]) Functional Tests Squat Test Score hip IR with squat, valgus/ instability with SL squat; improved w/ less depth Comments 2 ea PT-OP-F Manual Assessment Start: 10/07/24 12:59 Freq: Status: Active Protocol: Document 10/07/24 12:59 NM (Rec: 10/07/24 16:24 NM [id number]) Manual Assessments Soft Tissue Assessment Soft Tissue Mobility Assessment L sided lumbar paraspinals hypotrophy L hip flexor tightness, TFL Joint Mobility Assessment Joint Mobility Assessment Hypomobility lumbar paraspinals with PA springing. Limitations in L hip AROM and PROM especially into hip IR and ER; bony end feel. PT-OP-G Mobility & Gait Start: 10/07/24 12:59 Freq: Status: Active Protocol: Document 10/07/24 12:59 NM (Rec: 10/07/24 16:24 NM [id number]) OP Gait Assessment Gait Gait Assistance Required: Independent Distance (Feet) 150 Comments Gait Comments Wide based gait, demos decreased L hip/lumbopelvic mobility during swing, pronation PT-OP-J Posture/Palpation/Skin Start: 10/07/24 12:59 Freq: Status: Active Protocol: Document 10/07/24 12:59 NM (Rec: 10/07/24 16:24 NM [id number]) Posture Evaluation Position Standing Head/C-Spine Posture Forward Head Shoulder Posture (L) Rounded,(R) Rounded Knee Posture (L) Genu Valgus,(R) Genu Valgus Ankle/Foot Posture (L) Pronated,(R) Pronated Foot Arch (L) Low Arch,(R) Low Arch Palpation Assessment Location L hip Palpation Details Tightness of hip flexors especially TFL, iliopsoas lumbar spine Palpation Details No tenderness PSIS, spinous processes, paraspinals No tenderness to glutes/ piriformis, or along sciatic nerve PT-OP-K Range of Motion Start: 10/07/24 12:59 Freq: Status: Active Protocol: Document 10/07/24 12:59 NM (Rec: 10/07/24 13:49 NM [id number]) Lumbar Spine Range of Motion Lumbar Spine Active Percentage Flexion 100 Extension 100 Rotation Left 100 Rotation Right 100 Lateral Flexion Left 100 Lateral Flexion Right 100 Comments deep w/ flexion hip pain with ext and rotation L Hip Goniometric Range of Motion Hip Right Flexion w/Knee Flexed 125 Internal Rotation 35 External Rotation 30 Left Flexion w/Knee Flexed 120 Internal Rotation 22 External Rotation 30 Comments hip IR limited and mildly painful PT-OP-L Special Tests Start: 10/07/24 12:59 Freq: Status: Active Protocol: Document 10/07/24 12:59 NM (Rec: 10/07/24 13:49 NM [id number]) Special Tests Lumbar Spine Special Tests Slump Test Results + Ribera/quadrant Test Results - Hip Special Tests FADIR Test Results - Anterior Labral Test Test Results - Posterior Labral Test Test Results - Scour Test Test Results - PT-OP-M Strength Start: 10/07/24 12:59 Freq: Status: Active Protocol: Document 10/07/24 12:59 NM (Rec: 10/07/24 13:49 NM [id number]) Trunk Strength Trunk Manual Muscle Testing Comments 32 sec side plank B; 60 sec plank; 5/5 MMT trunk flexion Hip Strength Hip Manual Muscle Testing Right Flexion (L2) 4 Good Extension (S1) 5 Normal Abduction 5 Normal Adduction 5 Normal External Rotation 4 Good Internal Rotation 4 Good Left Flexion (L2) 4 Good Extension (S1) 4 Good Abduction 4+ Good+ Adduction 4+ Good+ External Rotation 4- Good- Internal Rotation 4- Good- Comments pain with IR; irritation of hip flexors with flex and ext Knee Strength Knee Manual Muscle Testing Right Flexion (S2) 5 Normal Extension (L3) 5 Normal Left Flexion (S2) 5 Normal Extension (L3) 5 Normal PT-OP-Q Treatments Start: 10/07/24 12:59 Freq: Status: Active Protocol: Document 10/28/24 13:45 MB (Rec: 10/28/24 14:29 MB [id number]) Manual Therapy Treatment Consent Patient gave verbal consent for manual Yes treatment Other Other Manual Treatments Pt supine with head and legs supported: STM B vastus lateralis, rectus and TFL and TrP treatment B vastus lateralis and TFL, TrP right iliopsoas, B rib recoil for QL and ribs PT-OP-T Assessment and Plan Start: 10/07/24 12:59 Freq: Status: Active Protocol: Document 10/28/24 13:45 MB (Rec: 10/28/24 14:29 MB [id number]) Physical Therapy Assessment Rehab Potential Rehabilitation Potential Good Evaluation Complexity Number of Personal Factors/Comorbidities 0 Number of Body Systems Impaired 1-2 Clinical Presentation at Evaluation Stable Impairments Impairments Activity Tolerance,Balance, Functional Activities, Functional Mobility,Gait, Integument,Pain,Posture,ROM, Sensation,Soft Tissue Mobility ,Strength Other Concerns Age Related Concerns PMH: septoplasty Goals Three Impairment pain with squatting Alf Goal (LTG) Pt will demo improved stability with 5/10 reps of single leg squat B in order to demonstrate improved hip ROM and stability for running LTG Duration 12 weeks Two Impairment L hip rotation impaired: IR 22 deg, ER 30 deg Alf Goal (LTG) Pt will increase L hip IR >30 deg and L hip ER >35 deg in order to improve hip mobility for running LTG Duration 12 weeks One Impairment pain with sleeping and sitting tolerance Fraud Investigator Goal (LTG) Pt will decrease SHARAN <12% in order to demonstrate improved symptom management LTG Duration 12 weeks Assessment Summary Assessment Pt with increased tension B vastus lateralis and left TFL. Pelvic alignment in standing: right iliac crest mildly higher and pt with tension in right QL and psoas. Physical Therapy Plan Frequency and Duration Frequency of Treatment 1x/Week Duration of treatment (weeks) 12 Plan of Care Start Date 10/07/24 Plan of Care End Date 01/01/25 Therapeutic Interventions Therapeutic Interventions Balance Training,Gait Training ,Home Exercise Program,Joint Mobilizations,Manual Therapy, Neuromuscular Re-education, Orthotic/Prosthetic Management ,Patient/Caregiver Education, Self-Care/Home Management, Sensory Integration,Soft Tissue Mobilization,Taping, Therapeutic Activities, Therapeutic Exercises Modalities Cold Pack/Ice Massage,Electric Stimulation,Hot Packs, Traction- Mechanical, Ultrasound Next Visit Focus/Plan Next Note Type Treatment Note Next Visit Plan Assess SIJ. promote hip ext, decreased post impingement. prone ER/IR vs sitting, hip abd c/ side plank, ecc hip flexo, pallof, single leg stability Self hip jt mobilizations with band. Hip IR and ER at end range
--- NOTE | 2024-11-04 15:27 | PT.OTN ---
Current Diagnoses Low back pain, unspecified (11/04/24) Physical Therapy Treatment Note PT-OP-A Visit Information Start: 10/07/24 12:59 Freq: Status: Active Protocol: Document 11/04/24 14:34 NM (Rec: 11/04/24 15:27 NM [id number]) Out-Patient Physical Therapy Visit Information Visit Information Visit Type Treatment Note Visit Start Time 14:34 Visit Stop Time 15:20 Visit Number 01/02 Evaluation Information Evaluation Date 10/07/24 PT-OP-B Current Condition Start: 10/07/24 12:59 Freq: Status: Active Protocol: Document 10/07/24 12:59 NM (Rec: 10/07/24 13:49 NM [id number]) Current Condition History of Current Condition Onset Date 2021-present History of Current Condition Pt presents to clinic with L hip sciatica in deep glute region and anterior L hip pain . 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 Original onset of pain occured while doing lots of physical training and heavy lifting; he thinks he blew out his back for 1 month while deadlifting, gradual improvement. Occurred November 2021. Has had significant past PT and work up via imaging, chiropractors, injections. Previously had numbness/ tingling into LLE in glute but no longer has same neural symptoms. Improvement has occurred with move to less stressful job. In November 2023, he was doing single leg squats on an elevated surface, felt like the hip gave out deep in the hip. Worse with sprinting, lack of motion. Denies clicking, popping, and locking . He is planning to get a referral for ITB pain. Participates in ultra running. Managed by reducing lifting ( squatting and deadlifting), warming up. Trainin-5 hr running (intervals, running,) was doing strength training but has since tapered per working with personal lines advisor Prior Treatments and Tests Pt reports has had multiple rounds of imaging for both hip and back Current Functional Impairments (Reported) Functional Limitations- Recreation/ lifting, running Hobbies PT-OP-C Subjective Start: 10/07/24 12:59 Freq: Status: Active Protocol: Document 11/04/24 14:34 NM (Rec: 11/04/24 15:27 NM [id number]) OP-PT Subjective Patient Comments Patient Comments Pt reports that he got relief for 48 hours after last session, was recommended monster walks. Reports can't get L glute to get tired, feels more in low back. Overall, states that he has less pain when doing stairs initially after coming to stand. Reports that has irritation at L hip flexor with full extension. PT-OP-E Functional Tests Start: 10/07/24 12:59 Freq: Status: Active Protocol: Document 10/07/24 12:59 NM (Rec: 10/07/24 13:49 NM [id number]) Functional Tests Squat Test Score hip IR with squat, valgus/ instability with SL squat; improved w/ less depth Comments 2 ea PT-OP-F Manual Assessment Start: 10/07/24 12:59 Freq: Status: Active Protocol: Document 10/07/24 12:59 NM (Rec: 10/07/24 16:24 NM [id number]) Manual Assessments Soft Tissue Assessment Soft Tissue Mobility Assessment L sided lumbar paraspinals hypotrophy L hip flexor tightness, TFL Joint Mobility Assessment Joint Mobility Assessment Hypomobility lumbar paraspinals with PA springing. Limitations in L hip AROM and PROM especially into hip IR and ER; bony end feel. PT-OP-G Mobility & Gait Start: 10/07/24 12:59 Freq: Status: Active Protocol: Document 10/07/24 12:59 NM (Rec: 10/07/24 16:24 NM [id number]) OP Gait Assessment Gait Gait Assistance Required: Independent Distance (Feet) 150 Comments Gait Comments Wide based gait, demos decreased L hip/lumbopelvic mobility during swing, pronation PT-OP-J Posture/Palpation/Skin Start: 10/07/24 12:59 Freq: Status: Active Protocol: Document 10/07/24 12:59 NM (Rec: 10/07/24 16:24 NM [id number]) Posture Evaluation Position Standing Head/C-Spine Posture Forward Head Shoulder Posture (L) Rounded,(R) Rounded Knee Posture (L) Genu Valgus,(R) Genu Valgus Ankle/Foot Posture (L) Pronated,(R) Pronated Foot Arch (L) Low Arch,(R) Low Arch Palpation Assessment Location L hip Palpation Details Tightness of hip flexors especially TFL, iliopsoas lumbar spine Palpation Details No tenderness PSIS, spinous processes, paraspinals No tenderness to glutes/ piriformis, or along sciatic nerve PT-OP-K Range of Motion Start: 10/07/24 12:59 Freq: Status: Active Protocol: Document 10/07/24 12:59 NM (Rec: 10/07/24 13:49 NM [id number]) Lumbar Spine Range of Motion Lumbar Spine Active Percentage Flexion 100 Extension 100 Rotation Left 100 Rotation Right 100 Lateral Flexion Left 100 Lateral Flexion Right 100 Comments deep w/ flexion hip pain with ext and rotation L Hip Goniometric Range of Motion Hip Right Flexion w/Knee Flexed 125 Internal Rotation 35 External Rotation 30 Left Flexion w/Knee Flexed 120 Internal Rotation 22 External Rotation 30 Comments hip IR limited and mildly painful PT-OP-L Special Tests Start: 10/07/24 12:59 Freq: Status: Active Protocol: Document 10/07/24 12:59 NM (Rec: 10/07/24 13:49 NM [id number]) Special Tests Lumbar Spine Special Tests Slump Test Results + Ribera/quadrant Test Results - Hip Special Tests FADIR Test Results - Anterior Labral Test Test Results - Posterior Labral Test Test Results - Scour Test Test Results - PT-OP-M Strength Start: 10/07/24 12:59 Freq: Status: Active Protocol: Document 10/07/24 12:59 NM (Rec: 10/07/24 13:49 NM [id number]) Trunk Strength Trunk Manual Muscle Testing Comments 32 sec side plank B; 60 sec plank; 5/5 MMT trunk flexion Hip Strength Hip Manual Muscle Testing Right Flexion (L2) 4 Good Extension (S1) 5 Normal Abduction 5 Normal Adduction 5 Normal External Rotation 4 Good Internal Rotation 4 Good Left Flexion (L2) 4 Good Extension (S1) 4 Good Abduction 4+ Good+ Adduction 4+ Good+ External Rotation 4- Good- Internal Rotation 4- Good- Comments pain with IR; irritation of hip flexors with flex and ext Knee Strength Knee Manual Muscle Testing Right Flexion (S2) 5 Normal Extension (L3) 5 Normal Left Flexion (S2) 5 Normal Extension (L3) 5 Normal PT-OP-Q Treatments Start: 10/07/24 12:59 Freq: Status: Active Protocol: Document 11/04/24 14:34 NM (Rec: 11/04/24 15:27 NM [id number]) Therapeutic Exercises Standing Exercises single leg RDL Standing Exercise Name cueing and education for hip hinge Side bilateral Equipment Used foam roller at wall Reps/Minutes 10 ea Comments mod cues for level pelcis, less hip ext to dec hyperext resisted stepping Standing Exercise Name lateral Side bilateral Resistance level 2 at toes Equipment Used squat position Reps/Minutes 25 ft x 3 Comments glute medius captdrew pickenss Standing Exercise Name c/ ball at wall Side bilateral Equipment Used kickball Reps/Minutes 2x8 Comments improved glute activation; cued for hip hinge, alingm glute medius activation Standing Exercise Name at wall Side bilateral Equipment Used c/ ball for 2nd set; cueing for level pelvis and no slight trunk lean Reps/Minutes 2x60 ea Comments feels less on L side Manual Therapy Treatment Consent Patient gave verbal consent for manual Yes treatment Joint Mobilizations Hips Joint c/ mobility strap Direction PA, AP, lat Grade IV Reps/Duration 4x30 ea Comments B hip only today. Monitored for pain, prior to exercises PT-OP-T Assessment and Plan Start: 10/07/24 12:59 Freq: Status: Active Protocol: Document 11/04/24 14:34 NM (Rec: 11/04/24 15:27 NM [id number]) Physical Therapy Assessment Goals Three Impairment pain with squatting Tester/Lift Trucker Goal (LTG) Pt will demo improved stability with 5/10 reps of single leg squat B in order to demonstrate improved hip ROM and stability for running LTG Duration 12 weeks Two Impairment L hip rotation impaired: IR 22 deg, ER 30 deg Tester/Lift Trucker Goal (LTG) Pt will increase L hip IR >30 deg and L hip ER >35 deg in order to improve hip mobility for running LTG Duration 12 weeks One Impairment pain with sleeping and sitting tolerance Long-Term Goal (LTG) Pt will decrease SHARAN <12% in order to demonstrate improved symptom management LTG Duration 12 weeks Assessment Summary Assessment Pt continues to have tightness at L TFL. Improved glute activation post glute medius isometric at wall. Moderate cueing needed to prevent trunk compensations and maintain level pelvis. Carryover with moderate cueing during captain nelia and single leg RDL. Tendency for trunk and B hip hyperextension vs hinge (L>R). Best feedback for glute activation with captain nelia . Single leg stability challenging, especially with level pelvis. No pain during session. Progressing toward goals. Physical Therapy Plan Frequency and Duration Frequency of Treatment 1x/Week Duration of treatment (weeks) 12 Plan of Care Start Date 10/07/24 Plan of Care End Date 01/01/25 Therapeutic Interventions Therapeutic Interventions Balance Training,Gait Training ,Home Exercise Program,Joint Mobilizations,Manual Therapy, Neuromuscular Re-education, Orthotic/Prosthetic Management ,Patient/Caregiver Education, Self-Care/Home Management, Sensory Integration,Soft Tissue Mobilization,Taping, Therapeutic Activities, Therapeutic Exercises Modalities Cold Pack/Ice Massage,Electric Stimulation,Hot Packs, Traction- Mechanical, Ultrasound Next Visit Focus/Plan Next Note Type Progress Note Next Visit Plan Assess pelvis. iliopsoas with sprinting and edn range hip flexion from extension. Retrial glute RDL, hip airplane, add side plank c/ lift, daed bug c/ band., copenhagens. promote hip ext, decreased post impingement. prone ER/IR vs sitting, hip abd c/ side plank, ecc hip flexo, pallof, single leg stability Self hip jt mobilizations with band. Hip IR and ER at end range
--- NOTE | 2024-11-11 15:56 | PT.OTN ---
Current Diagnoses Low back pain, unspecified (11/11/24) Physical Therapy Treatment Note PT-OP-A Visit Information Start: 10/07/24 12:59 Freq: Status: Active Protocol: Document 11/11/24 14:32 NM (Rec: 11/11/24 15:36 NM [id number]) Out-Patient Physical Therapy Visit Information Visit Information Visit Type Progress Note Visit Start Time 14:33 Visit Stop Time 15:15 Visit Number 02/01 Evaluation Information Evaluation Date 10/07/24 PT-OP-B Current Condition Start: 10/07/24 12:59 Freq: Status: Active Protocol: Document 10/07/24 12:59 NM (Rec: 10/07/24 13:49 NM [id number]) Current Condition History of Current Condition Onset Date 2021-present History of Current Condition Pt presents to clinic with L hip sciatica in deep glute region and anterior L hip pain . 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 Original onset of pain occured while doing lots of physical training and heavy lifting; he thinks he blew out his back for 1 month while deadlifting, gradual improvement. Occurred November 2021. Has had significant past PT and work up via imaging, chiropractors, injections. Previously had numbness/ tingling into LLE in glute but no longer has same neural symptoms. Improvement has occurred with move to less stressful job. In November 2023, he was doing single leg squats on an elevated surface, felt like the hip gave out deep in the hip. Worse with sprinting, lack of motion. Denies clicking, popping, and locking . He is planning to get a referral for ITB pain. Participates in ultra running. Managed by reducing lifting ( squatting and deadlifting), warming up. Trainin-5 hr running (intervals, running,) was doing strength training but has since tapered per working with personal care attendant Prior Treatments and Tests Pt reports has had multiple rounds of imaging for both hip and back Current Functional Impairments (Reported) Functional Limitations- Recreation/ lifting, running Hobbies PT-OP-C Subjective Start: 10/07/24 12:59 Freq: Status: Active Protocol: Document 11/11/24 14:32 NM (Rec: 11/11/24 15:36 NM [id number]) OP-PT Subjective Patient Comments Patient Comments Pt reports that he was sore after last session due to glute exercises. 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 Reports that sciatica is improving; gets at buttock in a certain spot only if bending forward. Regarding L anterior hip, feels more with hip extension with concurrently flexion (e.g . leg lifts c/ abs), only feels with sprinting or if running form degrades. Reports better glute activation but does not report overall improvement in symptoms. PT-OP-E Functional Tests Start: 10/07/24 12:59 Freq: Status: Active Protocol: Document 10/07/24 12:59 NM (Rec: 10/07/24 13:49 NM [id number]) Functional Tests Squat Test Score hip IR with squat, valgus/ instability with SL squat; improved w/ less depth Comments 2 ea PT-OP-F Manual Assessment Start: 10/07/24 12:59 Freq: Status: Active Protocol: Document 10/07/24 12:59 NM (Rec: 10/07/24 16:24 NM [id number]) Manual Assessments Soft Tissue Assessment Soft Tissue Mobility Assessment L sided lumbar paraspinals hypotrophy L hip flexor tightness, TFL Joint Mobility Assessment Joint Mobility Assessment Hypomobility lumbar paraspinals with PA springing. Limitations in L hip AROM and PROM especially into hip IR and ER; bony end feel. PT-OP-G Mobility & Gait Start: 10/07/24 12:59 Freq: Status: Active Protocol: Document 10/07/24 12:59 NM (Rec: 10/07/24 16:24 NM [id number]) OP Gait Assessment Gait Gait Assistance Required: Independent Distance (Feet) 150 Comments Gait Comments Wide based gait, demos decreased L hip/lumbopelvic mobility during swing, pronation PT-OP-J Posture/Palpation/Skin Start: 10/07/24 12:59 Freq: Status: Active Protocol: Document 10/07/24 12:59 NM (Rec: 10/07/24 16:24 NM [id number]) Posture Evaluation Position Standing Head/C-Spine Posture Forward Head Shoulder Posture (L) Rounded,(R) Rounded Knee Posture (L) Genu Valgus,(R) Genu Valgus Ankle/Foot Posture (L) Pronated,(R) Pronated Foot Arch (L) Low Arch,(R) Low Arch Palpation Assessment Location L hip Palpation Details Tightness of hip flexors especially TFL, iliopsoas lumbar spine Palpation Details No tenderness PSIS, spinous processes, paraspinals No tenderness to glutes/ piriformis, or along sciatic nerve PT-OP-K Range of Motion Start: 10/07/24 12:59 Freq: Status: Active Protocol: Document 11/11/24 14:32 NM (Rec: 11/11/24 15:36 NM [id number]) Lumbar Spine Range of Motion Lumbar Spine Active Percentage Flexion 100 Extension 100 Rotation Left 100 Rotation Right 100 Lateral Flexion Left 100 Lateral Flexion Right 100 Comments deep w/ flexion hip pain with ext and rotation L Hip Goniometric Range of Motion Hip Right Flexion w/Knee Flexed 125 Internal Rotation 38 External Rotation 38 Left Flexion w/Knee Flexed 120 Internal Rotation 30 External Rotation 30 Comments 11/11/24: tightness present with IR but not pain; located at TFL IE: hip IR limited and mildly painful PT-OP-L Special Tests Start: 10/07/24 12:59 Freq: Status: Active Protocol: Document 10/07/24 12:59 NM (Rec: 10/07/24 13:49 NM [id number]) Special Tests Lumbar Spine Special Tests Slump Test Results + Ribera/quadrant Test Results - Hip Special Tests FADIR Test Results - Anterior Labral Test Test Results - Posterior Labral Test Test Results - Scour Test Test Results - PT-OP-M Strength Start: 10/07/24 12:59 Freq: Status: Active Protocol: Document 10/07/24 12:59 NM (Rec: 10/07/24 13:49 NM [id number]) Trunk Strength Trunk Manual Muscle Testing Comments 32 sec side plank B; 60 sec plank; 5/5 MMT trunk flexion Hip Strength Hip Manual Muscle Testing Right Flexion (L2) 4 Good Extension (S1) 5 Normal Abduction 5 Normal Adduction 5 Normal External Rotation 4 Good Internal Rotation 4 Good Left Flexion (L2) 4 Good Extension (S1) 4 Good Abduction 4+ Good+ Adduction 4+ Good+ External Rotation 4- Good- Internal Rotation 4- Good- Comments pain with IR; irritation of hip flexors with flex and ext Knee Strength Knee Manual Muscle Testing Right Flexion (S2) 5 Normal Extension (L3) 5 Normal Left Flexion (S2) 5 Normal Extension (L3) 5 Normal PT-OP-Q Treatments Start: 10/07/24 12:59 Freq: Status: Active Protocol: Document 11/11/24 14:32 NM (Rec: 11/11/24 15:36 NM [id number]) Therapeutic Exercises Prone Exercises hip IR Prone Exercise Name 1. IR rotation, 2. IR rotation > frog lift off Side bilateral Reps/Minutes 10 ea Comments mat on floor; trialed assisted IR lift but unable d/t bony block Sitting Exercises SLR Sitting Exercise Name knee extended, hip maximally flexed Side bilateral Reps/Minutes 10 AROM, 15 c/ 1# Comments no pain Other Exercises 90/90 floor Other Exercise Name 90/90 position Comments limited on L side d/t hip/ pelvis jt elevation quadruped Other Exercise Name hip airplane IR Side bilateral Equipment Used foot on wall, mat on floor Reps/Minutes 20 ea leg Comments cued core bracing; demos improved ROM Manual Therapy Treatment Consent Patient gave verbal consent for manual Yes treatment Soft Tissue Mobilization L hip Body Location hip flexors Mobilization Type Rolling,Sustained Pressure Intensity/Depth Deep Body Position Supine Comments Under rectus femorus tendon. No tenderness to pressure, prior to exercise Manual Techniques contract-relax Type hip ext (neutral)>hip flex ( initial)>hip ext (neutral) Body Location L hip Body Position Hooklying Reps/Duration 5 sets x 3 hold ea position Comments ~ dying bug position for RLE LLE supported by PT, assisting eccentric hip flexion. Feels symptomatic pain, no increase with PNF technique, reports no symptomatic pain following technique Other Other Manual Treatments Assessment: L iliac crest higher, R iliac crest more anterior. PT-OP-T Assessment and Plan Start: 10/07/24 12:59 Freq: Status: Active Protocol: Document 11/11/24 14:32 NM (Rec: 11/11/24 15:36 NM [id number]) Physical Therapy Assessment Goals Three Impairment pain with squatting Field Human Resources Manager Goal (LTG) Pt will demo improved stability with 5/10 reps of single leg squat B in order to demonstrate improved hip ROM and stability for running 11/11/24: initiated captain pickens's single leg squat at wall; progressing toward slier squats and single leg squats on step LTG Duration 12 weeks Two Impairment L hip rotation impaired: IR 22 deg, ER 30 deg Residential Goal (LTG) Pt will increase L hip IR >30 deg and L hip ER >35 deg in order to improve hip mobility for running 11/11/24: L hip IR and ER 30 deg LTG Duration 12 weeks PROGRESSING 11/11 One Impairment pain with sleeping and sitting tolerance Field Human Resources Manager Goal (LTG) Pt will decrease SHARAN <12% in order to demonstrate improved symptom management 11/11/24: LTG Duration 12 weeks Progress Towards Goals Progress Towards Goals Progressing Toward Goals Assessment Summary Assessment Pt continue to respond well to hip IR mobility and strengthening. Cueing needed for core bracing to limit lumbar rotation assist with hip IR during hip airplanes. L hip more limited than R due to hip joint, decreased pelvic mobility, and lumbar compensatory movement. L iliac crest is more elevated. Progressed to hip IR AROM throughout ROM to maximize mobility. Still has pain with eccentric hip flexion at end range; possibly related to poor pelvic mobility. Physical Therapy Plan Frequency and Duration Frequency of Treatment 1x/Week Duration of treatment (weeks) 12 Plan of Care Start Date 10/07/24 Plan of Care End Date 01/01/25 Therapeutic Interventions Therapeutic Interventions Balance Training,Gait Training ,Home Exercise Program,Joint Mobilizations,Manual Therapy, Neuromuscular Re-education, Orthotic/Prosthetic Management ,Patient/Caregiver Education, Self-Care/Home Management, Sensory Integration,Soft Tissue Mobilization,Taping, Therapeutic Activities, Therapeutic Exercises Modalities Cold Pack/Ice Massage,Electric Stimulation,Hot Packs, Traction- Mechanical, Ultrasound Next Visit Focus/Plan Next Note Type Treatment Note Next Visit Plan Pelvic floor tightness, SIJ and hip mobility. Trial contract-relax for L iliac crest depression. May need L QL stretch (sidelying). Cont with L hip mobility munir IR/ER. Progress to glute RDL with IR at wall (band) then retrial single leg RDL. Trial side plank c/ lift, dying bug c/ band if hip flexors not irritated Assess pain with iliopsoas? with sprinting and end range hip flexion from extension. Retrial glute RDL, hip airplane, add side plank c/ lift, copenhagens. prone ER/IR vs sitting, hip abd c/ side plank, pallof, single leg stability Self hip jt mobilizations with band. Hip IR and ER at end range
--- NOTE | 2024-11-17 15:46 | PT.OTN ---
Current Diagnoses Low back pain, unspecified (11/17/24) Physical Therapy Treatment Note PT-OP-A Visit Information Start: 10/07/24 12:59 Freq: Status: Active Protocol: Document 11/17/24 13:03 NM (Rec: 11/17/24 13:48 NM [id number]) Out-Patient Physical Therapy Visit Information Visit Information Visit Type Treatment Note Visit Start Time 13:05 Visit Stop Time 13:45 Visit Number 03/04 Evaluation Information Evaluation Date 10/07/24 PT-OP-B Current Condition Start: 10/07/24 12:59 Freq: Status: Active Protocol: Document 10/07/24 12:59 NM (Rec: 10/07/24 13:49 NM [id number]) Current Condition History of Current Condition Onset Date 2021-present History of Current Condition Pt presents to clinic with L hip sciatica in deep glute region and anterior L hip pain . 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 Original onset of pain occured while doing lots of physical training and heavy lifting; he thinks he blew out his back for 1 month while deadlifting, gradual improvement. Occurred November 2021. Has had significant past PT and work up via imaging, chiropractors, injections. Previously had numbness/ tingling into LLE in glute but no longer has same neural symptoms. Improvement has occurred with move to less stressful job. In November 2023, he was doing single leg squats on an elevated surface, felt like the hip gave out deep in the hip. Worse with sprinting, lack of motion. Denies clicking, popping, and locking . He is planning to get a referral for ITB pain. Participates in ultra running. Managed by reducing lifting ( squatting and deadlifting), warming up. Trainin-5 hr running (intervals, running,) was doing strength training but has since tapered per working with program director/air personality Prior Treatments and Tests Pt reports has had multiple rounds of imaging for both hip and back Current Functional Impairments (Reported) Functional Limitations- Recreation/ lifting, running Hobbies PT-OP-C Subjective Start: 10/07/24 12:59 Freq: Status: Active Protocol: Document 11/17/24 13:03 NM (Rec: 11/17/24 13:48 NM [id number]) OP-PT Subjective Patient Comments Patient Comments Pt reports he has done more exploration of his pain, thinks more internal than previously thought. Reports that bring hip down into extension, adductors PT-OP-E Functional Tests Start: 10/07/24 12:59 Freq: Status: Active Protocol: Document 10/07/24 12:59 NM (Rec: 10/07/24 13:49 NM [id number]) Functional Tests Squat Test Score hip IR with squat, valgus/ instability with SL squat; improved w/ less depth Comments 2 ea PT-OP-F Manual Assessment Start: 10/07/24 12:59 Freq: Status: Active Protocol: Document 10/07/24 12:59 NM (Rec: 10/07/24 16:24 NM [id number]) Manual Assessments Soft Tissue Assessment Soft Tissue Mobility Assessment L sided lumbar paraspinals hypotrophy L hip flexor tightness, TFL Joint Mobility Assessment Joint Mobility Assessment Hypomobility lumbar paraspinals with PA springing. Limitations in L hip AROM and PROM especially into hip IR and ER; bony end feel. PT-OP-G Mobility & Gait Start: 10/07/24 12:59 Freq: Status: Active Protocol: Document 10/07/24 12:59 NM (Rec: 10/07/24 16:24 NM [id number]) OP Gait Assessment Gait Gait Assistance Required: Independent Distance (Feet) 150 Comments Gait Comments Wide based gait, demos decreased L hip/lumbopelvic mobility during swing, pronation PT-OP-J Posture/Palpation/Skin Start: 10/07/24 12:59 Freq: Status: Active Protocol: Document 10/07/24 12:59 NM (Rec: 10/07/24 16:24 NM [id number]) Posture Evaluation Position Standing Head/C-Spine Posture Forward Head Shoulder Posture (L) Rounded,(R) Rounded Knee Posture (L) Genu Valgus,(R) Genu Valgus Ankle/Foot Posture (L) Pronated,(R) Pronated Foot Arch (L) Low Arch,(R) Low Arch Palpation Assessment Location L hip Palpation Details Tightness of hip flexors especially TFL, iliopsoas lumbar spine Palpation Details No tenderness PSIS, spinous processes, paraspinals No tenderness to glutes/ piriformis, or along sciatic nerve PT-OP-K Range of Motion Start: 10/07/24 12:59 Freq: Status: Active Protocol: Document 11/11/24 14:32 NM (Rec: 11/11/24 15:36 NM [id number]) Lumbar Spine Range of Motion Lumbar Spine Active Percentage Flexion 100 Extension 100 Rotation Left 100 Rotation Right 100 Lateral Flexion Left 100 Lateral Flexion Right 100 Comments deep w/ flexion hip pain with ext and rotation L Hip Goniometric Range of Motion Hip Right Flexion w/Knee Flexed 125 Internal Rotation 38 External Rotation 38 Left Flexion w/Knee Flexed 120 Internal Rotation 30 External Rotation 30 Comments 11/11/24: tightness present with IR but not pain; located at TFL IE: hip IR limited and mildly painful PT-OP-L Special Tests Start: 10/07/24 12:59 Freq: Status: Active Protocol: Document 10/07/24 12:59 NM (Rec: 10/07/24 13:49 NM [id number]) Special Tests Lumbar Spine Special Tests Slump Test Results + Ribera/quadrant Test Results - Hip Special Tests FADIR Test Results - Anterior Labral Test Test Results - Posterior Labral Test Test Results - Scour Test Test Results - PT-OP-M Strength Start: 10/07/24 12:59 Freq: Status: Active Protocol: Document 10/07/24 12:59 NM (Rec: 10/07/24 13:49 NM [id number]) Trunk Strength Trunk Manual Muscle Testing Comments 32 sec side plank B; 60 sec plank; 5/5 MMT trunk flexion Hip Strength Hip Manual Muscle Testing Right Flexion (L2) 4 Good Extension (S1) 5 Normal Abduction 5 Normal Adduction 5 Normal External Rotation 4 Good Internal Rotation 4 Good Left Flexion (L2) 4 Good Extension (S1) 4 Good Abduction 4+ Good+ Adduction 4+ Good+ External Rotation 4- Good- Internal Rotation 4- Good- Comments pain with IR; irritation of hip flexors with flex and ext Knee Strength Knee Manual Muscle Testing Right Flexion (S2) 5 Normal Extension (L3) 5 Normal Left Flexion (S2) 5 Normal Extension (L3) 5 Normal PT-OP-Q Treatments Start: 10/07/24 12:59 Freq: Status: Active Protocol: Document 11/17/24 13:03 NM (Rec: 11/17/24 13:48 NM [id number]) Therapeutic Exercises Standing Exercises single leg RDL Standing Exercise Name wall airplane Side bilateral Reps/Minutes 2x8 Other Exercises pigeon glute max Other Exercise Name pigeon stretch c/ glute max lift Side bilateral Reps/Minutes 2x8 Comments less L hip mobility; post manual tx Manual Therapy Treatment Consent Patient gave verbal consent for manual Yes treatment Soft Tissue Mobilization L hip Body Location hip flexors, RF, pectineus, piriformis/glutes Mobilization Type Rolling,Sustained Pressure Intensity/Depth Deep Body Position Supine Comments Under rectus femorus tendon. No tenderness to pressure, prior to exercise Manual Techniques PNF Comments sidelying 1. clock 2. alt isometrics iliac elevation and depression, 5 sets 3. contract-relax caudally into wall c/ foot, 5 sets Test-retest: less discomfort with dying bug- lessened post manual prone 4. hip ER/IR alt isometrics, progressing into new ROM followed c/ functional movement PT-OP-T Assessment and Plan Start: 10/07/24 12:59 Freq: Status: Active Protocol: Document 11/17/24 13:03 NM (Rec: 11/17/24 13:48 NM [id number]) Physical Therapy Assessment Goals Three Impairment pain with squatting Logistics Program Manager Goal (LTG) Pt will demo improved stability with 5/10 reps of single leg squat B in order to demonstrate improved hip ROM and stability for running 11/11/24: initiated captain pickens's single leg squat at wall; progressing toward slier squats and single leg squats on step LTG Duration 12 weeks Two Impairment L hip rotation impaired: IR 22 deg, ER 30 deg Logistics Program Manager Goal (LTG) Pt will increase L hip IR >30 deg and L hip ER >35 deg in order to improve hip mobility for running 11/11/24: L hip IR and ER 30 deg LTG Duration 12 weeks PROGRESSING 11/11 One Impairment pain with sleeping and sitting tolerance Halfway Goal (LTG) Pt will decrease SHARAN <12% in order to demonstrate improved symptom management 11/11/24: LTG Duration 12 weeks Assessment Summary Assessment Pt has observable improvement in L hip ROM following PNF manual treatment but did not measure due to time. Still elevated L iliac crest, but lessened and more comparable to R side following contract- relax and PNF techniques. Pt also reports less discomfort in anterior hip with dying bug (test-retest) following elevation-depression mobilizations but still present. Manual soft tissue treatment to address pectineus , rectus femoris, and glutes/ piriformis. Tenderness only at pectineus area, but tightness still present along all hip flexors. Improved comfort with L hip ER mobility following PNF as well into glute pigeon exercise. Pt would continue to benefit from skilled PT for progressive L hip mobility and strengthening to decrease discomfort at low back and to promote better tolerance for exercise. Physical Therapy Plan Frequency and Duration Frequency of Treatment 1x/Week Duration of treatment (weeks) 12 Plan of Care Start Date 10/07/24 Plan of Care End Date 01/01/25 Therapeutic Interventions Therapeutic Interventions Balance Training,Gait Training ,Home Exercise Program,Joint Mobilizations,Manual Therapy, Neuromuscular Re-education, Orthotic/Prosthetic Management ,Patient/Caregiver Education, Self-Care/Home Management, Sensory Integration,Soft Tissue Mobilization,Taping, Therapeutic Activities, Therapeutic Exercises Modalities Cold Pack/Ice Massage,Electric Stimulation,Hot Packs, Traction- Mechanical, Ultrasound Next Visit Focus/Plan Next Note Type Treatment Note Next Visit Plan Pelvic floor tightness, SIJ and hip mobility- check pectineus. cont contract-relax for L iliac crest depression- trial c/ hip ext. test - retest with core. Cont with L hip mobility munir IR/ER. Trial side plank c/ lift, dying bug c/ band if hip flexors not irritated. Retrial glute RDL, hip airplane, add side plank c / lift, copenhagens. prone ER/ IR vs sitting, hip abd c/ side plank, pallof, single leg stability. lat touch down Self hip jt mobilizations with band. Hip IR and ER at end range
--- NOTE | 2024-11-25 15:09 | PT.OTN ---
Current Diagnoses Low back pain, unspecified (11/25/24) Physical Therapy Treatment Note PT-OP-A Visit Information Start: 10/07/24 12:59 Freq: Status: Active Protocol: Document 11/25/24 13:00 NM (Rec: 11/25/24 13:48 NM [id number]) Out-Patient Physical Therapy Visit Information Visit Information Visit Type Treatment Note Visit Start Time 13:04 Visit Stop Time 13:45 Visit Number 04/03 Evaluation Information Evaluation Date 10/07/24 PT-OP-B Current Condition Start: 10/07/24 12:59 Freq: Status: Active Protocol: Document 10/07/24 12:59 NM (Rec: 10/07/24 13:49 NM [id number]) Current Condition History of Current Condition Onset Date 2021-present History of Current Condition Pt presents to clinic with L hip sciatica in deep glute region and anterior L hip pain . 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 Original onset of pain occured while doing lots of physical training and heavy lifting; he thinks he blew out his back for 1 month while deadlifting, gradual improvement. Occurred November 2021. Has had significant past PT and work up via imaging, chiropractors, injections. Previously had numbness/ tingling into LLE in glute but no longer has same neural symptoms. Improvement has occurred with move to less stressful job. In November 2023, he was doing single leg squats on an elevated surface, felt like the hip gave out deep in the hip. Worse with sprinting, lack of motion. Denies clicking, popping, and locking . He is planning to get a referral for ITB pain. Participates in ultra running. Managed by reducing lifting ( squatting and deadlifting), warming up. Trainin-5 hr running (intervals, running,) was doing strength training but has since tapered per working with assistive technology trainer Prior Treatments and Tests Pt reports has had multiple rounds of imaging for both hip and back Current Functional Impairments (Reported) Functional Limitations- Recreation/ lifting, running Hobbies PT-OP-C Subjective Start: 10/07/24 12:59 Freq: Status: Active Protocol: Document 11/25/24 13:00 NM (Rec: 11/25/24 13:48 NM [id number]) OP-PT Subjective Patient Comments Patient Comments Pt reports went on a road trip , states that he felt alittle bit of Sciatic (only in the bottom). Reports doing HEP plus twice a week. Hung from pull up bar, reports RLE took several minutes to relax and reach floor vs LLE PT-OP-E Functional Tests Start: 10/07/24 12:59 Freq: Status: Active Protocol: Document 10/07/24 12:59 NM (Rec: 10/07/24 13:49 NM [id number]) Functional Tests Squat Test Score hip IR with squat, valgus/ instability with SL squat; improved w/ less depth Comments 2 ea PT-OP-F Manual Assessment Start: 10/07/24 12:59 Freq: Status: Active Protocol: Document 10/07/24 12:59 NM (Rec: 10/07/24 16:24 NM [id number]) Manual Assessments Soft Tissue Assessment Soft Tissue Mobility Assessment L sided lumbar paraspinals hypotrophy L hip flexor tightness, TFL Joint Mobility Assessment Joint Mobility Assessment Hypomobility lumbar paraspinals with PA springing. Limitations in L hip AROM and PROM especially into hip IR and ER; bony end feel. PT-OP-G Mobility & Gait Start: 10/07/24 12:59 Freq: Status: Active Protocol: Document 10/07/24 12:59 NM (Rec: 10/07/24 16:24 NM [id number]) OP Gait Assessment Gait Gait Assistance Required: Independent Distance (Feet) 150 Comments Gait Comments Wide based gait, demos decreased L hip/lumbopelvic mobility during swing, pronation PT-OP-J Posture/Palpation/Skin Start: 10/07/24 12:59 Freq: Status: Active Protocol: Document 10/07/24 12:59 NM (Rec: 10/07/24 16:24 NM [id number]) Posture Evaluation Position Standing Head/C-Spine Posture Forward Head Shoulder Posture (L) Rounded,(R) Rounded Knee Posture (L) Genu Valgus,(R) Genu Valgus Ankle/Foot Posture (L) Pronated,(R) Pronated Foot Arch (L) Low Arch,(R) Low Arch Palpation Assessment Location L hip Palpation Details Tightness of hip flexors especially TFL, iliopsoas lumbar spine Palpation Details No tenderness PSIS, spinous processes, paraspinals No tenderness to glutes/ piriformis, or along sciatic nerve PT-OP-K Range of Motion Start: 10/07/24 12:59 Freq: Status: Active Protocol: Document 11/25/24 13:00 NM (Rec: 11/25/24 13:48 NM [id number]) Hip Goniometric Range of Motion Hip Left Flexion w/Knee Flexed 120 Internal Rotation 30 External Rotation 30 Comments 11/11/24: tightness present with IR but not pain; located at TFL IE: hip IR limited and mildly painful PT-OP-L Special Tests Start: 10/07/24 12:59 Freq: Status: Active Protocol: Document 10/07/24 12:59 NM (Rec: 10/07/24 13:49 NM [id number]) Special Tests Lumbar Spine Special Tests Slump Test Results + Rbiera/quadrant Test Results - Hip Special Tests FADIR Test Results - Anterior Labral Test Test Results - Posterior Labral Test Test Results - Scour Test Test Results - PT-OP-M Strength Start: 10/07/24 12:59 Freq: Status: Active Protocol: Document 10/07/24 12:59 NM (Rec: 10/07/24 13:49 NM [id number]) Trunk Strength Trunk Manual Muscle Testing Comments 32 sec side plank B; 60 sec plank; 5/5 MMT trunk flexion Hip Strength Hip Manual Muscle Testing Right Flexion (L2) 4 Good Extension (S1) 5 Normal Abduction 5 Normal Adduction 5 Normal External Rotation 4 Good Internal Rotation 4 Good Left Flexion (L2) 4 Good Extension (S1) 4 Good Abduction 4+ Good+ Adduction 4+ Good+ External Rotation 4- Good- Internal Rotation 4- Good- Comments pain with IR; irritation of hip flexors with flex and ext Knee Strength Knee Manual Muscle Testing Right Flexion (S2) 5 Normal Extension (L3) 5 Normal Left Flexion (S2) 5 Normal Extension (L3) 5 Normal PT-OP-Q Treatments Start: 10/07/24 12:59 Freq: Status: Active Protocol: Document 11/25/24 13:00 NM (Rec: 11/25/24 13:48 NM [id number]) Therapeutic Exercises Prone Exercises hip ER Prone Exercise Name 1. AROM, 2. c/ band (HEP for both, no HO per pt request) Side bilateral Resistance level 2 band Equipment Used knee elevated on yoga block for increased ROM Reps/Minutes 10 ea Comments no pain; L more limited hip IR Prone Exercise Name 1. AROM, 2. c/ band (HEP for both, no HO per pt request) Side bilateral Resistance level 2 band Equipment Used knee elevated on yoga block for increased ROM Reps/Minutes 10 ea Comments no pain; L more limited Sidelying Exercises adduction Sidelying Exercise Name partial ROM, long lever arm- for pelvic stability Side left Comments painful d/c Manual Therapy Treatment Consent Patient gave verbal consent for manual Yes treatment Joint Mobilizations Hips Joint R Direction LAD Grade III Body Position Hooklying Reps/Duration 2x30 ea Manual Techniques PNF Reps/Duration 5 sets ea Comments prone 1. PA mobilization c/ strap, hip ER 2. caudal glide MWM c/ hip ER, contract-relax with increasing ROM 3. contract-relax hip IR c/ bolster under hip for mobilization, contract-relax with increasing ROM supine <> long sit measured pre (92cm R, 96cm L) and post (97 cm ea) 4. caudal SIJ distraction c/ hip ER and IR performed B PT-OP-T Assessment and Plan Start: 10/07/24 12:59 Freq: Status: Active Protocol: Document 11/25/24 13:00 NM (Rec: 11/25/24 13:48 NM [id number]) Physical Therapy Assessment Goals Three Impairment pain with squatting Halfway Goal (LTG) Pt will demo improved stability with 5/10 reps of single leg squat B in order to demonstrate improved hip ROM and stability for running 11/11/24: initiated captain pickens's single leg squat at wall; progressing toward slier squats and single leg squats on step LTG Duration 12 weeks Two Impairment L hip rotation impaired: IR 22 deg, ER 30 deg Agricultural Science Professor Goal (LTG) Pt will increase L hip IR >30 deg and L hip ER >35 deg in order to improve hip mobility for running 11/11/24: L hip IR and ER 30 deg LTG Duration 12 weeks PROGRESSING 11/11 One Impairment pain with sleeping and sitting tolerance Agricultural Science Professor Goal (LTG) Pt will decrease SHARAN <12% in order to demonstrate improved symptom management 11/11/24: LTG Duration 12 weeks Assessment Summary Assessment Pt able to pinpoint pain to resisted adduction with long lever arm and full hip flexion , same pain reproduced with squats and core activities. Improvement in pelvic position and hip ROM following mobilization with contract- relax, still demos tendency for compensation to extend hips and utilize glutes vs actual hip IR and ER. L hip IR and ER still observably limited compared to R side. Physical Therapy Plan Frequency and Duration Frequency of Treatment 1x/Week Duration of treatment (weeks) 12 Plan of Care Start Date 10/07/24 Plan of Care End Date 01/01/25 Therapeutic Interventions Therapeutic Interventions Balance Training,Gait Training ,Home Exercise Program,Joint Mobilizations,Manual Therapy, Neuromuscular Re-education, Orthotic/Prosthetic Management ,Patient/Caregiver Education, Self-Care/Home Management, Sensory Integration,Soft Tissue Mobilization,Taping, Therapeutic Activities, Therapeutic Exercises Modalities Cold Pack/Ice Massage,Electric Stimulation,Hot Packs, Traction- Mechanical, Ultrasound Next Visit Focus/Plan Next Note Type Treatment Note Next Visit Plan Auth expires 01/08- ask pt to reach out to PCP for more auth if needed Address adductor pain- possible mila Cont to address Pelvic floor tightness, pelvis/SIJ and hip mobility- check pectineus. cont contract-relax for L iliac crest depression- trial c/ hip ext as needed Trial side plank c/ lift, dying bug c/ band if hip flexors not irritated. For glute RDL, hip airplane, add side plank c/ lift, copenhagens. prone ER/IR vs sitting, hip abd c/ side plank , pallof, single leg stability . lat touch down Self hip jt mobilizations with band. Hip IR and ER at end range
--- NOTE | 2024-12-02 15:56 | PT.OTN ---
Current Diagnoses Low back pain, unspecified (12/02/24) Physical Therapy Treatment Note PT-OP-A Visit Information Start: 10/07/24 12:59 Freq: Status: Active Protocol: Document 12/02/24 14:34 NM (Rec: 12/02/24 15:43 NM [id number]) Out-Patient Physical Therapy Visit Information Visit Information Visit Type Treatment Note Visit Start Time 14:36 Visit Stop Time 15:15 Visit Number 05/04 PT-OP-B Current Condition Start: 10/07/24 12:59 Freq: Status: Active Protocol: Document 10/07/24 12:59 NM (Rec: 10/07/24 13:49 NM [id number]) Current Condition History of Current Condition Onset Date 2021-present History of Current Condition Pt presents to clinic with L hip sciatica in deep glute region and anterior L hip pain . 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 Original onset of pain occured while doing lots of physical training and heavy lifting; he thinks he blew out his back for 1 month while deadlifting, gradual improvement. Occurred November 2021. Has had significant past PT and work up via imaging, chiropractors, injections. Previously had numbness/ tingling into LLE in glute but no longer has same neural symptoms. Improvement has occurred with move to less stressful job. In November 2023, he was doing single leg squats on an elevated surface, felt like the hip gave out deep in the hip. Worse with sprinting, lack of motion. Denies clicking, popping, and locking . He is planning to get a referral for ITB pain. Participates in ultra running. Managed by reducing lifting ( squatting and deadlifting), warming up. Trainin-5 hr running (intervals, running,) was doing strength training but has since tapered per working with link trainer maintenance worker Prior Treatments and Tests Pt reports has had multiple rounds of imaging for both hip and back Current Functional Impairments (Reported) Functional Limitations- Recreation/ lifting, running Hobbies PT-OP-C Subjective Start: 10/07/24 12:59 Freq: Status: Active Protocol: Document 12/02/24 14:34 NM (Rec: 12/02/24 15:43 NM [id number]) OP-PT Subjective Patient Comments Patient Comments [place], reports no irritation with hips/groin. Pt reports not doing HEP currently, states not bothering him. States no current tender points, less than previously with. PT-OP-E Functional Tests Start: 10/07/24 12:59 Freq: Status: Active Protocol: Document 10/07/24 12:59 NM (Rec: 10/07/24 13:49 NM [id number]) Functional Tests Squat Test Score hip IR with squat, valgus/ instability with SL squat; improved w/ less depth Comments 2 ea PT-OP-F Manual Assessment Start: 10/07/24 12:59 Freq: Status: Active Protocol: Document 10/07/24 12:59 NM (Rec: 10/07/24 16:24 NM [id number]) Manual Assessments Soft Tissue Assessment Soft Tissue Mobility Assessment L sided lumbar paraspinals hypotrophy L hip flexor tightness, TFL Joint Mobility Assessment Joint Mobility Assessment Hypomobility lumbar paraspinals with PA springing. Limitations in L hip AROM and PROM especially into hip IR and ER; bony end feel. PT-OP-G Mobility & Gait Start: 10/07/24 12:59 Freq: Status: Active Protocol: Document 10/07/24 12:59 NM (Rec: 10/07/24 16:24 NM [id number]) OP Gait Assessment Gait Gait Assistance Required: Independent Distance (Feet) 150 Comments Gait Comments Wide based gait, demos decreased L hip/lumbopelvic mobility during swing, pronation PT-OP-J Posture/Palpation/Skin Start: 10/07/24 12:59 Freq: Status: Active Protocol: Document 10/07/24 12:59 NM (Rec: 10/07/24 16:24 NM [id number]) Posture Evaluation Position Standing Head/C-Spine Posture Forward Head Shoulder Posture (L) Rounded,(R) Rounded Knee Posture (L) Genu Valgus,(R) Genu Valgus Ankle/Foot Posture (L) Pronated,(R) Pronated Foot Arch (L) Low Arch,(R) Low Arch Palpation Assessment Location L hip Palpation Details Tightness of hip flexors especially TFL, iliopsoas lumbar spine Palpation Details No tenderness PSIS, spinous processes, paraspinals No tenderness to glutes/ piriformis, or along sciatic nerve PT-OP-K Range of Motion Start: 10/07/24 12:59 Freq: Status: Active Protocol: Document 12/02/24 14:34 NM (Rec: 12/02/24 15:43 NM [id number]) Hip Goniometric Range of Motion Hip Right Flexion w/Knee Flexed 125 Internal Rotation 38 External Rotation 38 Left Flexion w/Knee Flexed 120 Internal Rotation 30 External Rotation 30 Comments 12/02/24, 11/11/24: tightness present with IR but not pain; located at TFL IE: hip IR limited and mildly painful PT-OP-L Special Tests Start: 10/07/24 12:59 Freq: Status: Active Protocol: Document 10/07/24 12:59 NM (Rec: 10/07/24 13:49 NM [id number]) Special Tests Lumbar Spine Special Tests Slump Test Results + Ribera/quadrant Test Results - Hip Special Tests FADIR Test Results - Anterior Labral Test Test Results - Posterior Labral Test Test Results - Scour Test Test Results - PT-OP-M Strength Start: 10/07/24 12:59 Freq: Status: Active Protocol: Document 12/02/24 14:34 NM (Rec: 12/02/24 15:43 NM [id number]) Hip Strength Hip Manual Muscle Testing Right Flexion (L2) 4 Good Extension (S1) 5 Normal Abduction 5 Normal Adduction 5 Normal External Rotation 4 Good Internal Rotation 4 Good Left Flexion (L2) 4 Good Extension (S1) 4 Good Abduction 4+ Good+ Adduction 4+ Good+ External Rotation 4- Good- Internal Rotation 4- Good- Comments pain with IR; irritation of hip flexors with flex and ext 12/02/24: pain with hip ADD PT-OP-Q Treatments Start: 10/07/24 12:59 Freq: Status: Active Protocol: Document 12/02/24 14:34 NM (Rec: 12/02/24 15:43 NM [id number]) Therapeutic Exercises Supine Exercises adduction Supine Exercise Name 1. supported 90/90 hip ADD, 2. long lever Side bilateral Equipment Used 70% mila force, kickball btwn legs Reps/Minutes 1. 30 & 4x45 holds, 2. 30, 45, 3x30 Comments mat on floor; trialed inc hip flex at wall; pain free Sidelying Exercises side plank Sidelying Exercise Name 1. c/ hip abduction/IR , 2. c/ hip flexion Side bilateral Equipment Used wall tactile cue for IR Reps/Minutes 15 ea Comments weaker on L side than R; modified on knees Standing Exercises step down Standing Exercise Name 6 > 8 step up Side bilateral Reps/Minutes 15 ea Comments post adductor mila Self-Care/Home Management Treatment Education Other Education HEP all with photos. Education on [id number] pain scale. Educated for 90/90 to gradually to move into more hip flexion at wall as long as does not flare pain. Current HEP: RDLs, captain wymans, prone IR c/ band, ok for hip mobility c/ band as needed PT-OP-T Assessment and Plan Start: 10/07/24 12:59 Freq: Status: Active Protocol: Document 12/02/24 14:34 NM (Rec: 12/02/24 15:43 NM [id number]) Physical Therapy Assessment Goals Three Impairment pain with squatting Blasting Machine Operator Goal (LTG) Pt will demo improved stability with 5/10 reps of single leg squat B in order to demonstrate improved hip ROM and stability for running 11/11/24: initiated captain pickens's single leg squat at wall; progressing toward slier squats and single leg squats on step 12/02/24: step down squats with poor control and cueing for glute activation LTG Duration 12 weeks PROGRESSINg 12/02 Two Impairment L hip rotation impaired: IR 22 deg, ER 30 deg Skilled Nursing Goal (LTG) Pt will increase L hip IR >30 deg and L hip ER >35 deg in order to improve hip mobility for running 12/02/24, 11/11/24: L hip IR and ER 30 deg LTG Duration 12 weeks PROGRESSING 12/02 One Impairment pain with sleeping and sitting tolerance Skilled Nursing Goal (LTG) Pt will decrease SHARAN <12% in order to demonstrate improved symptom management 12/02/24: 6% SHARAN, LEFS 77/80 LTG Duration 12 weeks MET Assessment Summary Assessment Pt responds well to isometric hip adduction loading, able to progress to 45 holds for several sets at 70% isometrics . Educated on increasing hip flexor ROM during isometric for progression. Increased time spent on glute medius activation. Demos restrictions in maintaining ability to utilize glute medius for pelvic stabilization during squats and planks, especially on L side. Regressed to modified sidelying plank for improved execution, in preparation for stability during running. At this time, pt would continue to benefit from skilled PT for continued manual treatment and progressive strengthening in order to decrease pain and to improve ability to participate in work/recreational activities with fewer limitations. Physical Therapy Plan Frequency and Duration Frequency of Treatment 1x/Week Duration of treatment (weeks) 12 Plan of Care Start Date 10/07/24 Plan of Care End Date 01/01/25 Therapeutic Interventions Therapeutic Interventions Balance Training,Gait Training ,Home Exercise Program,Joint Mobilizations,Manual Therapy, Neuromuscular Re-education, Orthotic/Prosthetic Management ,Patient/Caregiver Education, Self-Care/Home Management, Sensory Integration,Soft Tissue Mobilization,Taping, Therapeutic Activities, Therapeutic Exercises Modalities Cold Pack/Ice Massage,Electric Stimulation,Hot Packs, Traction- Mechanical, Ultrasound Next Visit Focus/Plan Next Note Type Treatment Note Next Visit Plan Auth expires 01/08- ask pt to reach out to PCP for more auth Address adductor pain- progress mila if needed vs progress to mila copenhagen plank (short lever) if pain free with eventual progression to long lever once appropriate. Cont to address pelvis/Pelvic floor tightness, hip mobility munir in relation to hip flexors /glutes- check pectineus. cont contract-relax for L iliac crest depression- trial c/ hip ext as needed Strengthen: glute med activation, improve hip IR/ext - progress c/ RDL, standing hip IR c/ RDL, cables for hip abd/add/IR as kavita. split squat rear elevated, depth squat
--- NOTE | 2024-12-03 09:00 | PT.OTN ---
Current Diagnoses Low back pain, unspecified (12/02/24) Physical Therapy Treatment Note PT-OP-A Visit Information Start: 10/07/24 12:59 Freq: Status: Active Protocol: Document 12/02/24 14:34 NM (Rec: 12/02/24 15:43 NM [id number]) Out-Patient Physical Therapy Visit Information Visit Information Visit Type Treatment Note Visit Start Time 14:36 Visit Stop Time 15:15 Visit Number 05/04 PT-OP-B Current Condition Start: 10/07/24 12:59 Freq: Status: Active Protocol: Document 10/07/24 12:59 NM (Rec: 10/07/24 13:49 NM [id number]) Current Condition History of Current Condition Onset Date 2021-present History of Current Condition Pt presents to clinic with L hip sciatica in deep glute region and anterior L hip pain . 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 Original onset of pain occured while doing lots of physical training and heavy lifting; he thinks he blew out his back for 1 month while deadlifting, gradual improvement. Occurred November 2021. Has had significant past PT and work up via imaging, chiropractors, injections. Previously had numbness/ tingling into LLE in glute but no longer has same neural symptoms. Improvement has occurred with move to less stressful job. In November 2023, he was doing single leg squats on an elevated surface, felt like the hip gave out deep in the hip. Worse with sprinting, lack of motion. Denies clicking, popping, and locking . He is planning to get a referral for ITB pain. Participates in ultra running. Managed by reducing lifting ( squatting and deadlifting), warming up. Trainin-5 hr running (intervals, running,) was doing strength training but has since tapered per working with canine service instructor trainer Prior Treatments and Tests Pt reports has had multiple rounds of imaging for both hip and back Current Functional Impairments (Reported) Functional Limitations- Recreation/ lifting, running Hobbies PT-OP-C Subjective Start: 10/07/24 12:59 Freq: Status: Active Protocol: Document 12/02/24 14:34 NM (Rec: 12/02/24 15:43 NM [id number]) OP-PT Subjective Patient Comments Patient Comments [place], reports no irritation with hips/groin. Pt reports not doing HEP currently, states not bothering him. States no current tender points, less than previously with. PT-OP-E Functional Tests Start: 10/07/24 12:59 Freq: Status: Active Protocol: Document 10/07/24 12:59 NM (Rec: 10/07/24 13:49 NM [id number]) Functional Tests Squat Test Score hip IR with squat, valgus/ instability with SL squat; improved w/ less depth Comments 2 ea PT-OP-F Manual Assessment Start: 10/07/24 12:59 Freq: Status: Active Protocol: Document 10/07/24 12:59 NM (Rec: 10/07/24 16:24 NM [id number]) Manual Assessments Soft Tissue Assessment Soft Tissue Mobility Assessment L sided lumbar paraspinals hypotrophy L hip flexor tightness, TFL Joint Mobility Assessment Joint Mobility Assessment Hypomobility lumbar paraspinals with PA springing. Limitations in L hip AROM and PROM especially into hip IR and ER; bony end feel. PT-OP-G Mobility & Gait Start: 10/07/24 12:59 Freq: Status: Active Protocol: Document 10/07/24 12:59 NM (Rec: 10/07/24 16:24 NM [id number]) OP Gait Assessment Gait Gait Assistance Required: Independent Distance (Feet) 150 Comments Gait Comments Wide based gait, demos decreased L hip/lumbopelvic mobility during swing, pronation PT-OP-J Posture/Palpation/Skin Start: 10/07/24 12:59 Freq: Status: Active Protocol: Document 10/07/24 12:59 NM (Rec: 10/07/24 16:24 NM [id number]) Posture Evaluation Position Standing Head/C-Spine Posture Forward Head Shoulder Posture (L) Rounded,(R) Rounded Knee Posture (L) Genu Valgus,(R) Genu Valgus Ankle/Foot Posture (L) Pronated,(R) Pronated Foot Arch (L) Low Arch,(R) Low Arch Palpation Assessment Location L hip Palpation Details Tightness of hip flexors especially TFL, iliopsoas lumbar spine Palpation Details No tenderness PSIS, spinous processes, paraspinals No tenderness to glutes/ piriformis, or along sciatic nerve PT-OP-K Range of Motion Start: 10/07/24 12:59 Freq: Status: Active Protocol: Document 12/02/24 14:34 NM (Rec: 12/02/24 15:43 NM [id number]) Hip Goniometric Range of Motion Hip Right Flexion w/Knee Flexed 125 Internal Rotation 38 External Rotation 38 Left Flexion w/Knee Flexed 120 Internal Rotation 30 External Rotation 30 Comments 12/02/24, 11/11/24: tightness present with IR but not pain; located at TFL IE: hip IR limited and mildly painful PT-OP-L Special Tests Start: 10/07/24 12:59 Freq: Status: Active Protocol: Document 10/07/24 12:59 NM (Rec: 10/07/24 13:49 NM [id number]) Special Tests Lumbar Spine Special Tests Slump Test Results + Ribera/quadrant Test Results - Hip Special Tests FADIR Test Results - Anterior Labral Test Test Results - Posterior Labral Test Test Results - Scour Test Test Results - PT-OP-M Strength Start: 10/07/24 12:59 Freq: Status: Active Protocol: Document 12/02/24 14:34 NM (Rec: 12/02/24 15:43 NM [id number]) Hip Strength Hip Manual Muscle Testing Right Flexion (L2) 4 Good Extension (S1) 5 Normal Abduction 5 Normal Adduction 5 Normal External Rotation 4 Good Internal Rotation 4 Good Left Flexion (L2) 4 Good Extension (S1) 4 Good Abduction 4+ Good+ Adduction 4+ Good+ External Rotation 4- Good- Internal Rotation 4- Good- Comments pain with IR; irritation of hip flexors with flex and ext 12/02/24: pain with hip ADD PT-OP-Q Treatments Start: 10/07/24 12:59 Freq: Status: Active Protocol: Document 12/02/24 14:34 NM (Rec: 12/02/24 15:43 NM [id number]) Therapeutic Exercises Supine Exercises adduction Supine Exercise Name 1. supported 90/90 hip ADD, 2. long lever Side bilateral Equipment Used 70% mila force, kickball btwn legs Reps/Minutes 1. 30 & 4x45 holds, 2. 30, 45, 3x30 Comments mat on floor; trialed inc hip flex at wall; pain free Sidelying Exercises side plank Sidelying Exercise Name 1. c/ hip abduction/IR , 2. c/ hip flexion Side bilateral Equipment Used wall tactile cue for IR Reps/Minutes 15 ea Comments weaker on L side than R; modified on knees Standing Exercises step down Standing Exercise Name 6 > 8 step up Side bilateral Reps/Minutes 15 ea Comments post adductor mila Self-Care/Home Management Treatment Education Other Education HEP all with photos. Education on [id number] pain scale. Educated for 90/90 to gradually to move into more hip flexion at wall as long as does not flare pain. Current HEP: RDLs, captain wymans, prone IR c/ band, ok for hip mobility c/ band as needed PT-OP-T Assessment and Plan Start: 10/07/24 12:59 Freq: Status: Active Protocol: Document 12/02/24 14:34 NM (Rec: 12/02/24 15:43 NM [id number]) Physical Therapy Assessment Goals Three Impairment pain with squatting Advertising Vice President Goal (LTG) Pt will demo improved stability with 5/10 reps of single leg squat B in order to demonstrate improved hip ROM and stability for running 11/11/24: initiated captain pickens's single leg squat at wall; progressing toward slier squats and single leg squats on step 12/02/24: step down squats with poor control and cueing for glute activation LTG Duration 12 weeks PROGRESSINg 12/02 Two Impairment L hip rotation impaired: IR 22 deg, ER 30 deg Skilled Nursing Goal (LTG) Pt will increase L hip IR >30 deg and L hip ER >35 deg in order to improve hip mobility for running 12/02/24, 11/11/24: L hip IR and ER 30 deg LTG Duration 12 weeks PROGRESSING 12/02 One Impairment pain with sleeping and sitting tolerance Skilled Nursing Goal (LTG) Pt will decrease SHARAN <12% in order to demonstrate improved symptom management 12/02/24: 6% SHARAN, LEFS 77/80 LTG Duration 12 weeks MET Assessment Summary Assessment Pt responds well to isometric hip adduction loading, able to progress to 45 holds for several sets at 70% isometrics . Educated on increasing hip flexor ROM during isometric for progression. Increased time spent on glute medius activation. Demos restrictions in maintaining ability to utilize glute medius for pelvic stabilization during squats and planks, especially on L side. Regressed to modified sidelying plank for improved execution, in preparation for stability during running. At this time, pt would continue to benefit from skilled PT for continued manual treatment and progressive strengthening in order to decrease pain and to improve ability to participate in work/recreational activities with fewer limitations. Physical Therapy Plan Frequency and Duration Frequency of Treatment 1x/Week Duration of treatment (weeks) 12 Plan of Care Start Date 10/07/24 Plan of Care End Date 01/01/25 Therapeutic Interventions Therapeutic Interventions Balance Training,Gait Training ,Home Exercise Program,Joint Mobilizations,Manual Therapy, Neuromuscular Re-education, Orthotic/Prosthetic Management ,Patient/Caregiver Education, Self-Care/Home Management, Sensory Integration,Soft Tissue Mobilization,Taping, Therapeutic Activities, Therapeutic Exercises Modalities Cold Pack/Ice Massage,Electric Stimulation,Hot Packs, Traction- Mechanical, Ultrasound Next Visit Focus/Plan Next Note Type Treatment Note Next Visit Plan Auth expires 01/08- ask pt to reach out to PCP for more auth Address adductor pain- progress mila if needed vs progress to mila copenhagen plank (short lever) if pain free with eventual progression to long lever once appropriate. Cont to address pelvis/Pelvic floor tightness, hip mobility munir in relation to hip flexors /glutes- check pectineus. cont contract-relax for L iliac crest depression- trial c/ hip ext as needed Strengthen: glute med activation, improve hip IR/ext - progress c/ RDL, standing hip IR c/ RDL, cables for hip abd/add/IR as kavita. split squat rear elevated, depth squat
--- NOTE | 2024-12-08 10:32 | PT-OP ANOTE ---
Pt cancelled appointment on 12/09/24.
--- NOTE | 2024-12-15 15:17 | PT.OTN ---
Current Diagnoses Low back pain, unspecified (12/15/24) Physical Therapy Treatment Note PT-OP-A Visit Information Start: 10/07/24 12:59 Freq: Status: Active Protocol: Document 12/15/24 13:45 MB (Rec: 12/15/24 14:32 MB [id number]) Out-Patient Physical Therapy Visit Information Visit Information Visit Type Treatment Note Visit Start Time 13:45 Visit Stop Time 14:25 Visit Number 06/04 Evaluation Information Evaluation Date 10/07/24 PT-OP-B Current Condition Start: 10/07/24 12:59 Freq: Status: Active Protocol: Document 10/07/24 12:59 NM (Rec: 10/07/24 13:49 NM [id number]) Current Condition History of Current Condition Onset Date 2021-present History of Current Condition Pt presents to clinic with L hip sciatica in deep glute region and anterior L hip pain . 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 Original onset of pain occured while doing lots of physical training and heavy lifting; he thinks he blew out his back for 1 month while deadlifting, gradual improvement. Occurred November 2021. Has had significant past PT and work up via imaging, chiropractors, injections. Previously had numbness/ tingling into LLE in glute but no longer has same neural symptoms. Improvement has occurred with move to less stressful job. In November 2023, he was doing single leg squats on an elevated surface, felt like the hip gave out deep in the hip. Worse with sprinting, lack of motion. Denies clicking, popping, and locking . He is planning to get a referral for ITB pain. Participates in ultra running. Managed by reducing lifting ( squatting and deadlifting), warming up. Trainin-5 hr running (intervals, running,) was doing strength training but has since tapered per working with health and safety trainer Prior Treatments and Tests Pt reports has had multiple rounds of imaging for both hip and back Current Functional Impairments (Reported) Functional Limitations- Recreation/ lifting, running Hobbies PT-OP-C Subjective Start: 10/07/24 12:59 Freq: Status: Active Protocol: Document 12/15/24 13:45 MB (Rec: 12/15/24 14:32 MB [id number]) OP-PT Subjective Patient Comments Patient Comments Pt states that he might feel a little better since the exercises changed from focusing on hip flexor to working on the groin. Running, biking and skiing are going well. He has refrained heavy lifting at this time. PT-OP-E Functional Tests Start: 10/07/24 12:59 Freq: Status: Active Protocol: Document 10/07/24 12:59 NM (Rec: 10/07/24 13:49 NM [id number]) Functional Tests Squat Test Score hip IR with squat, valgus/ instability with SL squat; improved w/ less depth Comments 2 ea PT-OP-F Manual Assessment Start: 10/07/24 12:59 Freq: Status: Active Protocol: Document 10/07/24 12:59 NM (Rec: 10/07/24 16:24 NM [id number]) Manual Assessments Soft Tissue Assessment Soft Tissue Mobility Assessment L sided lumbar paraspinals hypotrophy L hip flexor tightness, TFL Joint Mobility Assessment Joint Mobility Assessment Hypomobility lumbar paraspinals with PA springing. Limitations in L hip AROM and PROM especially into hip IR and ER; bony end feel. PT-OP-G Mobility & Gait Start: 10/07/24 12:59 Freq: Status: Active Protocol: Document 10/07/24 12:59 NM (Rec: 10/07/24 16:24 NM [id number]) OP Gait Assessment Gait Gait Assistance Required: Independent Distance (Feet) 150 Comments Gait Comments Wide based gait, demos decreased L hip/lumbopelvic mobility during swing, pronation PT-OP-J Posture/Palpation/Skin Start: 10/07/24 12:59 Freq: Status: Active Protocol: Document 10/07/24 12:59 NM (Rec: 10/07/24 16:24 NM [id number]) Posture Evaluation Position Standing Head/C-Spine Posture Forward Head Shoulder Posture (L) Rounded,(R) Rounded Knee Posture (L) Genu Valgus,(R) Genu Valgus Ankle/Foot Posture (L) Pronated,(R) Pronated Foot Arch (L) Low Arch,(R) Low Arch Palpation Assessment Location L hip Palpation Details Tightness of hip flexors especially TFL, iliopsoas lumbar spine Palpation Details No tenderness PSIS, spinous processes, paraspinals No tenderness to glutes/ piriformis, or along sciatic nerve PT-OP-K Range of Motion Start: 10/07/24 12:59 Freq: Status: Active Protocol: Document 12/02/24 14:34 NM (Rec: 12/02/24 15:43 NM [id number]) Hip Goniometric Range of Motion Hip Right Flexion w/Knee Flexed 125 Internal Rotation 38 External Rotation 38 Left Flexion w/Knee Flexed 120 Internal Rotation 30 External Rotation 30 Comments 12/02/24, 11/11/24: tightness present with IR but not pain; located at TFL IE: hip IR limited and mildly painful PT-OP-L Special Tests Start: 10/07/24 12:59 Freq: Status: Active Protocol: Document 10/07/24 12:59 NM (Rec: 10/07/24 13:49 NM [id number]) Special Tests Lumbar Spine Special Tests Slump Test Results + Ribera/quadrant Test Results - Hip Special Tests FADIR Test Results - Anterior Labral Test Test Results - Posterior Labral Test Test Results - Scour Test Test Results - PT-OP-M Strength Start: 10/07/24 12:59 Freq: Status: Active Protocol: Document 12/02/24 14:34 NM (Rec: 12/02/24 15:43 NM [id number]) Hip Strength Hip Manual Muscle Testing Right Flexion (L2) 4 Good Extension (S1) 5 Normal Abduction 5 Normal Adduction 5 Normal External Rotation 4 Good Internal Rotation 4 Good Left Flexion (L2) 4 Good Extension (S1) 4 Good Abduction 4+ Good+ Adduction 4+ Good+ External Rotation 4- Good- Internal Rotation 4- Good- Comments pain with IR; irritation of hip flexors with flex and ext 12/02/24: pain with hip ADD PT-OP-Q Treatments Start: 10/07/24 12:59 Freq: Status: Active Protocol: Document 12/15/24 13:45 MB (Rec: 12/15/24 14:32 MB [id number]) Manual Therapy Treatment Consent Patient gave verbal consent for manual Yes treatment Other Other Manual Treatments Pt with 1 to 1.5 cm area over left pubic ramus that feels like a cyst and PT ed pt to discuss with doctor on Saturday when he sees him d/t location of pain. Fascial Counterstrain assessment of back demonstrates most tension at T12. Treated left groin area with neural fascia positional release, pt with increased stiffness right hip in supine and mildly higher left pelvis in standing, possibly mildly shorter right leg that will want to further assess in future treatments. Self-Care/Home Management Treatment Education Patient Education Body Mechanics,Joint Protection,Pain Management, Posture Other Education Ed pt in Fascial Counterstrain , findings today and possible hip inflare/outflare will want to assess in future treatments and ed pt to back off on pubic symphysis adductor isometrics as they cause pain and pt states he has notices legs dangle at different lengths and one ischial tube is lower than the left with deep squat and he has different foot strike sound foot to foot and PT ed pt to see if he can tell which leg feels shorter over the next week PT-OP-T Assessment and Plan Start: 10/07/24 12:59 Freq: Status: Active Protocol: Document 12/15/24 13:45 MB (Rec: 12/15/24 14:32 MB [id number]) Physical Therapy Assessment Goals Three Impairment pain with squatting Mcfp Goal (LTG) Pt will demo improved stability with 5/10 reps of single leg squat B in order to demonstrate improved hip ROM and stability for running 11/11/24: initiated captain pickens's single leg squat at wall; progressing toward slier squats and single leg squats on step 12/02/24: step down squats with poor control and cueing for glute activation LTG Duration 12 weeks PROGRESSINg 12/02 Two Impairment L hip rotation impaired: IR 22 deg, ER 30 deg Vamp Presser Goal (LTG) Pt will increase L hip IR >30 deg and L hip ER >35 deg in order to improve hip mobility for running 12/02/24, 11/11/24: L hip IR and ER 30 deg LTG Duration 12 weeks PROGRESSING 12/02 One Impairment pain with sleeping and sitting tolerance Vamp Presser Goal (LTG) Pt will decrease SHARAN <12% in order to demonstrate improved symptom management 12/02/24: 6% SHARAN, LEFS 77/80 LTG Duration 12 weeks MET Assessment Summary Assessment See findings above, some right pelvic stiffness and possible shorter right leg that is very minimal and will con't to assess after further work on pelvis. B feet flat with pes planus and midfoot changes and look at this as well. If determine leg length difference, could try a 1-3 mm lift, full length. Left cyst like area over pubic ramus and PT to speak with provider about this. Physical Therapy Plan Frequency and Duration Frequency of Treatment 1x/Week Duration of treatment (weeks) 12 Plan of Care Start Date 10/07/24 Plan of Care End Date 01/01/25 Therapeutic Interventions Therapeutic Interventions Balance Training,Gait Training ,Home Exercise Program,Joint Mobilizations,Manual Therapy, Neuromuscular Re-education, Orthotic/Prosthetic Management ,Patient/Caregiver Education, Self-Care/Home Management, Sensory Integration,Soft Tissue Mobilization,Taping, Therapeutic Activities, Therapeutic Exercises Modalities Cold Pack/Ice Massage,Electric Stimulation,Hot Packs, Traction- Mechanical, Ultrasound Next Visit Focus/Plan Next Note Type Treatment Note Next Visit Plan Auth expires 01/08- ask pt to reach out to PCP for more auth Address adductor pain- progress mila if needed vs progress to mila copenhagen plank (short lever) if pain free with eventual progression to long lever once appropriate. Cont to address pelvis/Pelvic floor tightness, hip mobility munir in relation to hip flexors /glutes- check pectineus. cont contract-relax for L iliac crest depression- trial c/ hip ext as needed Strengthen: glute med activation, improve hip IR/ext - progress c/ RDL, standing hip IR c/ RDL, cables for hip abd/add/IR as kavita. split squat rear elevated, depth squat
--- NOTE | 2024-12-22 07:12 | PT-OP ANOTE ---
Pt calls pt to ask about follow-up about left pubic ramus area palpated and he states that doctor did assess and feel it is a lymph node. Doctor said keep an eye on it if it changes. He is feeling a lot better this week. Con't PT per plan.
--- NOTE | 2024-12-28 18:56 | PT.OTN ---
Current Diagnoses Low back pain, unspecified (12/28/24) Physical Therapy Treatment Note PT-OP-A Visit Information Start: 10/07/24 12:59 Freq: Status: Active Protocol: Document 12/28/24 14:35 [facility] (Rec: 12/28/24 18:19 [facility] [id number]) Out-Patient Physical Therapy Visit Information Visit Information Visit Type Progress Note Visit Start Time 14:35 Visit Stop Time 15:15 Visit Number 07/04 Number of NEONATAL NURSE PRACTITIONER Visits 0 PT-OP-B Current Condition Start: 10/07/24 12:59 Freq: Status: Active Protocol: Document 10/07/24 12:59 NM (Rec: 10/07/24 13:49 NM [id number]) Current Condition History of Current Condition Onset Date 2021-present History of Current Condition Pt presents to clinic with L hip sciatica in deep glute region and anterior L hip pain . 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 Original onset of pain occured while doing lots of physical training and heavy lifting; he thinks he blew out his back for 1 month while deadlifting, gradual improvement. Occurred November 2021. Has had significant past PT and work up via imaging, chiropractors, injections. Previously had numbness/ tingling into LLE in glute but no longer has same neural symptoms. Improvement has occurred with move to less stressful job. In November 2023, he was doing single leg squats on an elevated surface, felt like the hip gave out deep in the hip. Worse with sprinting, lack of motion. Denies clicking, popping, and locking . He is planning to get a referral for ITB pain. Participates in ultra running. Managed by reducing lifting ( squatting and deadlifting), warming up. Trainin-5 hr running (intervals, running,) was doing strength training but has since tapered per working with personal consultant Prior Treatments and Tests Pt reports has had multiple rounds of imaging for both hip and back Current Functional Impairments (Reported) Functional Limitations- Recreation/ lifting, running Hobbies PT-OP-C Subjective Start: 10/07/24 12:59 Freq: Status: Active Protocol: Document 12/28/24 14:35 [facility] (Rec: 12/28/24 18:19 [facility] [id number]) OP-PT Subjective Patient Comments Patient Comments Pain has been the same as it always has been. Hip thing for the last year is still happening. It goes up and down . Notices the most during add movement PT-OP-E Functional Tests Start: 10/07/24 12:59 Freq: Status: Active Protocol: Document 10/07/24 12:59 NM (Rec: 10/07/24 13:49 NM [id number]) Functional Tests Squat Test Score hip IR with squat, valgus/ instability with SL squat; improved w/ less depth Comments 2 ea PT-OP-F Manual Assessment Start: 10/07/24 12:59 Freq: Status: Active Protocol: Document 10/07/24 12:59 NM (Rec: 10/07/24 16:24 NM [id number]) Manual Assessments Soft Tissue Assessment Soft Tissue Mobility Assessment L sided lumbar paraspinals hypotrophy L hip flexor tightness, TFL Joint Mobility Assessment Joint Mobility Assessment Hypomobility lumbar paraspinals with PA springing. Limitations in L hip AROM and PROM especially into hip IR and ER; bony end feel. PT-OP-G Mobility & Gait Start: 10/07/24 12:59 Freq: Status: Active Protocol: Document 10/07/24 12:59 NM (Rec: 10/07/24 16:24 NM [id number]) OP Gait Assessment Gait Gait Assistance Required: Independent Distance (Feet) 150 Comments Gait Comments Wide based gait, demos decreased L hip/lumbopelvic mobility during swing, pronation PT-OP-J Posture/Palpation/Skin Start: 10/07/24 12:59 Freq: Status: Active Protocol: Document 10/07/24 12:59 NM (Rec: 10/07/24 16:24 NM [id number]) Posture Evaluation Position Standing Head/C-Spine Posture Forward Head Shoulder Posture (L) Rounded,(R) Rounded Knee Posture (L) Genu Valgus,(R) Genu Valgus Ankle/Foot Posture (L) Pronated,(R) Pronated Foot Arch (L) Low Arch,(R) Low Arch Palpation Assessment Location L hip Palpation Details Tightness of hip flexors especially TFL, iliopsoas lumbar spine Palpation Details No tenderness PSIS, spinous processes, paraspinals No tenderness to glutes/ piriformis, or along sciatic nerve PT-OP-K Range of Motion Start: 10/07/24 12:59 Freq: Status: Active Protocol: Document 12/28/24 14:35 [facility] (Rec: 12/28/24 18:19 [facility] [id number]) Hip Goniometric Range of Motion Hip Left Internal Rotation 33 External Rotation 33 Comments IR tightness PT-OP-L Special Tests Start: 10/07/24 12:59 Freq: Status: Active Protocol: Document 10/07/24 12:59 NM (Rec: 10/07/24 13:49 NM [id number]) Special Tests Lumbar Spine Special Tests Slump Test Results + Ribera/quadrant Test Results - Hip Special Tests FADIR Test Results - Anterior Labral Test Test Results - Posterior Labral Test Test Results - Scour Test Test Results - PT-OP-M Strength Start: 10/07/24 12:59 Freq: Status: Active Protocol: Document 12/02/24 14:34 NM (Rec: 12/02/24 15:43 NM [id number]) Hip Strength Hip Manual Muscle Testing Right Flexion (L2) 4 Good Extension (S1) 5 Normal Abduction 5 Normal Adduction 5 Normal External Rotation 4 Good Internal Rotation 4 Good Left Flexion (L2) 4 Good Extension (S1) 4 Good Abduction 4+ Good+ Adduction 4+ Good+ External Rotation 4- Good- Internal Rotation 4- Good- Comments pain with IR; irritation of hip flexors with flex and ext 12/02/24: pain with hip ADD PT-OP-Q Treatments Start: 10/07/24 12:59 Freq: Status: Active Protocol: Document 12/28/24 14:35 [facility] (Rec: 12/28/24 18:19 [facility] [id number]) Manual Therapy Treatment Consent Patient gave verbal consent for manual Yes treatment Soft Tissue Mobilization L hip Body Location L add Joint Mobilizations sacrum Comments cadual prone L c/r w/LTR, L PA w/LTR innominate Joint L Comments cadual prone L c/r w/LTR, ER c /r prone, flex c/r Hips Comments hip on axis ER c/r prone w/ manual facilitation at end range; inf glide c/r PT-OP-T Assessment and Plan Start: 10/07/24 12:59 Freq: Status: Active Protocol: Document 12/28/24 14:35 [facility] (Rec: 12/28/24 18:19 [facility] [id number]) Physical Therapy Assessment Goals Three Impairment pain with squatting Loom Fixer Supervisor Goal (LTG) Pt will demo improved stability with 5/10 reps of single leg squat B in order to demonstrate improved hip ROM and stability for running 11/11/24: initiated captain pickens's single leg squat at wall; progressing toward slier squats and single leg squats on step 12/02/24: step down squats with poor control and cueing for glute activation 12/30-not full control LTG Duration 8 weeks PROGRESSINg Two Impairment L hip rotation impaired: IR 22 deg, ER 30 deg Loom Fixer Supervisor Goal (LTG) Pt will increase L hip IR >30 deg and L hip ER >35 deg in order to improve hip mobility for running 12/02/24, 11/11/24: L hip IR and ER 30 deg 12/30-33 ea LTG Duration 8 weeks PROGRESSING One Impairment pain with sleeping and sitting tolerance Fci Goal (LTG) Pt will decrease SHARAN <12% in order to demonstrate improved symptom management 12/02/24: 6% SHARAN, LEFS 77/80 LTG Duration MET Assessment Summary Assessment Pt had improved innominate mobility after manual. Pt is encouraged to go back to provider to discuss imaging since he has completed about 3 months of PT at this time w/ still restrictions noted. Pt would benefit from cont to work on innominate mobility along w/hip flexors and add mobility. Physical Therapy Plan Frequency and Duration Frequency of Treatment 1x/Week Duration of treatment (weeks) 8 Plan of Care Start Date 12/28/24 Plan of Care End Date 02/24/25 Next Visit Focus/Plan Next Note Type Treatment Note Next Visit Plan cont innominate mobility, try new exercises consider copenhagen plank, look at abd moblity of ischial tubs, self c/r stretch add and active add stretching, MMT
--- NOTE | 2024-12-28 18:57 | PT.OPPOC ---
Physical, Occupational & Speech Therapy At [facility] Current Diagnoses Low back pain, unspecified (12/28/24) Visit Care Team Role Provider Type Kev Chiu MD Attending Provider Non-Staff Family Provider Primary Care Provider Referring Provider Specialty: Medical Address: [address] [place] [address], [id number] Email: Plan Of Care PT-OP-B Current Condition Start: 10/07/24 12:59 Freq: Status: Active Protocol: Document 10/07/24 12:59 [facility] (Rec: 10/07/24 13:49 NM [id number]) Current Condition History of Current Condition Onset Date 2021-present History of Current Condition Pt presents to clinic with L hip sciatica in deep glute region and anterior L hip pain . 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 Original onset of pain occured while doing lots of physical training and heavy lifting; he thinks he blew out his back for 1 month while deadlifting, gradual improvement. Occurred November 2021. Has had significant past PT and work up via imaging, chiropractors, injections. Previously had numbness/ tingling into LLE in glute but no longer has same neural symptoms. Improvement has occurred with move to less stressful job. In November 2023, he was doing single leg squats on an elevated surface, felt like the hip gave out deep in the hip. Worse with sprinting, lack of motion. Denies clicking, popping, and locking . He is planning to get a referral for ITB pain. Participates in ultra running. Managed by reducing lifting ( squatting and deadlifting), warming up. Trainin-5 hr running (intervals, running,) was doing strength training but has since tapered per working with personal lines agent Prior Treatments and Tests Pt reports has had multiple rounds of imaging for both hip and back Current Functional Impairments (Reported) Functional Limitations- Recreation/ lifting, running Hobbies PT-OP-T Assessment and Plan Start: 10/07/24 12:59 Freq: Status: Active Protocol: Document 12/28/24 14:35 [facility] (Rec: 12/28/24 18:19 [facility] [id number]) Physical Therapy Assessment Goals Three Impairment pain with squatting Mcc Goal (LTG) Pt will demo improved stability with 5/10 reps of single leg squat B in order to demonstrate improved hip ROM and stability for running 11/11/24: initiated captain pickens's single leg squat at wall; progressing toward slier squats and single leg squats on step 12/02/24: step down squats with poor control and cueing for glute activation 12/30-not full control LTG Duration 8 weeks PROGRESSINg Two Impairment L hip rotation impaired: IR 22 deg, ER 30 deg Vascular Neurologist Goal (LTG) Pt will increase L hip IR >30 deg and L hip ER >35 deg in order to improve hip mobility for running 12/02/24, 11/11/24: L hip IR and ER 30 deg 12/30-33 ea LTG Duration 8 weeks PROGRESSING One Impairment pain with sleeping and sitting tolerance Mcc Goal (LTG) Pt will decrease SHARAN <12% in order to demonstrate improved symptom management 12/02/24: 6% SHARAN, LEFS 77/80 LTG Duration MET Assessment Summary Assessment Pt had improved innominate mobility after manual. Pt is encouraged to go back to provider to discuss imaging since he has completed about 3 months of PT at this time w/ still restrictions noted. Pt would benefit from cont to work on innominate mobility along w/hip flexors and add mobility. Physical Therapy Plan Frequency and Duration Frequency of Treatment 1x/Week Duration of treatment (weeks) 8 Plan of Care Start Date 12/28/24 Plan of Care End Date 02/24/25 Next Visit Focus/Plan Next Note Type Treatment Note Next Visit Plan cont innominate mobility, try new exercises consider copenhagen plank, look at abd moblity of ischial tubs, self c/r stretch add and active add stretching, MMT Plan of Care Dates Plan of Care Start Date 12/28/24 Plan of Care End Date 02/24/25 Electronically Signed by: Tiffany Mercado, PT 12/30/24 [id number] If you are in agreement with this Plan of Care, please return a signed and dated copy. I have reviewed this Plan of Care and certify that the skilled therapy services above are required to meet the patient?s needs. Physician Signature Date Printed Name and Credentials Clinical Instructor Signature Printed Name and Credentials
--- NOTE | 2025-01-07 16:18 | PT.OTN ---
Current Diagnoses Low back pain, unspecified (01/07/25) Physical Therapy Treatment Note PT-OP-A Visit Information Start: 10/07/24 12:59 Freq: Status: Active Protocol: Document 01/07/25 13:09 [facility] (Rec: 01/07/25 16:18 [facility] [id number]) Out-Patient Physical Therapy Visit Information Visit Information Visit Type Treatment Note Visit Start Time 13:06 Visit Stop Time 13:46 Visit Number 11 Number of RECEIVING DISTRIBUTION STATION OPERATOR Visits 0 PT-OP-B Current Condition Start: 10/07/24 12:59 Freq: Status: Active Protocol: Document 10/07/24 12:59 NM (Rec: 10/07/24 13:49 NM [id number]) Current Condition History of Current Condition Onset Date 2021-present History of Current Condition Pt presents to clinic with L hip sciatica in deep glute region and anterior L hip pain . 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 Original onset of pain occured while doing lots of physical training and heavy lifting; he thinks he blew out his back for 1 month while deadlifting, gradual improvement. Occurred November 2021. Has had significant past PT and work up via imaging, chiropractors, injections. Previously had numbness/ tingling into LLE in glute but no longer has same neural symptoms. Improvement has occurred with move to less stressful job. In November 2023, he was doing single leg squats on an elevated surface, felt like the hip gave out deep in the hip. Worse with sprinting, lack of motion. Denies clicking, popping, and locking . He is planning to get a referral for ITB pain. Participates in ultra running. Managed by reducing lifting ( squatting and deadlifting), warming up. Trainin-5 hr running (intervals, running,) was doing strength training but has since tapered per working with personal vehicle advisor Prior Treatments and Tests Pt reports has had multiple rounds of imaging for both hip and back Current Functional Impairments (Reported) Functional Limitations- Recreation/ lifting, running Hobbies PT-OP-C Subjective Start: 10/07/24 12:59 Freq: Status: Active Protocol: Document 01/07/25 13:09 [facility] (Rec: 01/07/25 16:18 [facility] [id number]) OP-PT Subjective Patient Comments Patient Comments no change. Saw doctor who is going to order MRI PT-OP-E Functional Tests Start: 10/07/24 12:59 Freq: Status: Active Protocol: Document 10/07/24 12:59 NM (Rec: 10/07/24 13:49 NM [id number]) Functional Tests Squat Test Score hip IR with squat, valgus/ instability with SL squat; improved w/ less depth Comments 2 ea PT-OP-F Manual Assessment Start: 10/07/24 12:59 Freq: Status: Active Protocol: Document 10/07/24 12:59 NM (Rec: 10/07/24 16:24 NM [id number]) Manual Assessments Soft Tissue Assessment Soft Tissue Mobility Assessment L sided lumbar paraspinals hypotrophy L hip flexor tightness, TFL Joint Mobility Assessment Joint Mobility Assessment Hypomobility lumbar paraspinals with PA springing. Limitations in L hip AROM and PROM especially into hip IR and ER; bony end feel. PT-OP-G Mobility & Gait Start: 10/07/24 12:59 Freq: Status: Active Protocol: Document 10/07/24 12:59 NM (Rec: 10/07/24 16:24 NM [id number]) OP Gait Assessment Gait Gait Assistance Required: Independent Distance (Feet) 150 Comments Gait Comments Wide based gait, demos decreased L hip/lumbopelvic mobility during swing, pronation PT-OP-J Posture/Palpation/Skin Start: 10/07/24 12:59 Freq: Status: Active Protocol: Document 10/07/24 12:59 [facility] (Rec: 10/07/24 16:24 NM [id number]) Posture Evaluation Position Standing Head/C-Spine Posture Forward Head Shoulder Posture (L) Rounded,(R) Rounded Knee Posture (L) Genu Valgus,(R) Genu Valgus Ankle/Foot Posture (L) Pronated,(R) Pronated Foot Arch (L) Low Arch,(R) Low Arch Palpation Assessment Location L hip Palpation Details Tightness of hip flexors especially TFL, iliopsoas lumbar spine Palpation Details No tenderness PSIS, spinous processes, paraspinals No tenderness to glutes/ piriformis, or along sciatic nerve PT-OP-K Range of Motion Start: 10/07/24 12:59 Freq: Status: Active Protocol: Document 12/28/24 14:35 [facility] (Rec: 12/28/24 18:19 [facility] [id number]) Hip Goniometric Range of Motion Hip Left Internal Rotation 33 External Rotation 33 Comments IR tightness PT-OP-L Special Tests Start: 10/07/24 12:59 Freq: Status: Active Protocol: Document 10/07/24 12:59 [facility] (Rec: 10/07/24 13:49 NM [id number]) Special Tests Lumbar Spine Special Tests Slump Test Results + Ribera/quadrant Test Results - Hip Special Tests FADIR Test Results - Anterior Labral Test Test Results - Posterior Labral Test Test Results - Scour Test Test Results - PT-OP-M Strength Start: 10/07/24 12:59 Freq: Status: Active Protocol: Document 01/07/25 13:09 [facility] (Rec: 01/07/25 16:18 [facility] [id number]) Hip Strength Hip Manual Muscle Testing Right Flexion (L2) 5 Normal Extension (S1) 5 Normal Abduction 5 Normal Adduction 5 Normal External Rotation 5 Normal Internal Rotation 5 Normal Left Flexion (L2) 5 Normal Extension (S1) 5 Normal Abduction 5 Normal Adduction 5 Normal External Rotation 5 Normal Internal Rotation 5 Normal PT-OP-Q Treatments Start: 10/07/24 12:59 Freq: Status: Active Protocol: Document 01/07/25 13:09 [facility] (Rec: 01/07/25 16:18 [facility] [id number]) Therapeutic Exercises Supine Exercises hip flexion Supine Exercise Name DL flex, add, ER DF press ( crossed arms) Side bilateral Reps/Minutes prolonged hold Sidelying Exercises side plank Sidelying Exercise Name coppenhagen on knees Side bilateral Reps/Minutes 30 sec ea Manual Therapy Treatment Consent Patient gave verbal consent for manual Yes treatment Soft Tissue Mobilization L hip Body Location L pectineus, adductor aleksander and longus, iliopsoas insertion Mobilization Type Sustained Pressure Intensity/Depth Moderate Joint Mobilizations innominate Comments L IR and flex c/r Hips Comments L inf lat c/r Neuro Re-Education Treatment Other Activities PNF Reps/Duration 15 min Comments irradiation from LLE to pelvis ant elevation w/traction progressed to prolonged holds w/flex,add, ER DF pattern and progressed to dissociation of hip from pelvis then pelvis from hip w/COI progressed to COI w/entire LE and pelvic pattern PT-OP-T Assessment and Plan Start: 10/07/24 12:59 Freq: Status: Active Protocol: Document 01/07/25 13:09 [facility] (Rec: 01/07/25 16:18 [facility] [id number]) Physical Therapy Assessment Goals Three Impairment pain with squatting Halfway Goal (LTG) Pt will demo improved stability with 5/10 reps of single leg squat B in order to demonstrate improved hip ROM and stability for running 11/11/24: initiated captain pickens's single leg squat at wall; progressing toward slier squats and single leg squats on step 12/02/24: step down squats with poor control and cueing for glute activation 12/30-not full control LTG Duration 8 weeks PROGRESSINg Two Impairment L hip rotation impaired: IR 22 deg, ER 30 deg Halfway Goal (LTG) Pt will increase L hip IR >30 deg and L hip ER >35 deg in order to improve hip mobility for running 12/02/24, 11/11/24: L hip IR and ER 30 deg 12/30-33 ea LTG Duration 8 weeks PROGRESSING One Impairment pain with sleeping and sitting tolerance Halfway Goal (LTG) Pt will decrease SHARAN <12% in order to demonstrate improved symptom management 12/02/24: 6% SHARAN, LEFS 77/80 LTG Duration MET Assessment Summary Assessment Pt did well with new exercises w/o inc pain. No pain noted in MMT and 01/25 except w/Radd noted pain w/position of LLE. He does have dec stability and ability to do SL squat. Physical Therapy Plan Frequency and Duration Frequency of Treatment 1x/Week Duration of treatment (weeks) 8 Plan of Care Start Date 12/28/24 Plan of Care End Date 02/24/25 Next Visit Focus/Plan Next Note Type Progress Note Next Visit Plan cont innominate mobility, look at SL deep squats, look at abd moblity of ischial tubs, self c/r stretch add and active add stretching
--- NOTE | 2025-01-12 18:27 | PT.OTN ---
Current Diagnoses Low back pain, unspecified (01/12/25) Physical Therapy Treatment Note PT-OP-A Visit Information Start: 10/07/24 12:59 Freq: Status: Active Protocol: Document 01/12/25 17:04 [facility] (Rec: 01/12/25 18:27 [facility] [id number]) Out-Patient Physical Therapy Visit Information Visit Information Visit Type Treatment Note Visit Start Time 17:03 Visit Stop Time 17:43 Visit Number 12 Number of PARKING GARAGE MANAGER Visits 0 PT-OP-B Current Condition Start: 10/07/24 12:59 Freq: Status: Active Protocol: Document 10/07/24 12:59 NM (Rec: 10/07/24 13:49 NM [id number]) Current Condition History of Current Condition Onset Date 2021-present History of Current Condition Pt presents to clinic with L hip sciatica in deep glute region and anterior L hip pain . 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 Original onset of pain occured while doing lots of physical training and heavy lifting; he thinks he blew out his back for 1 month while deadlifting, gradual improvement. Occurred November 2021. Has had significant past PT and work up via imaging, chiropractors, injections. Previously had numbness/ tingling into LLE in glute but no longer has same neural symptoms. Improvement has occurred with move to less stressful job. In November 2023, he was doing single leg squats on an elevated surface, felt like the hip gave out deep in the hip. Worse with sprinting, lack of motion. Denies clicking, popping, and locking . He is planning to get a referral for ITB pain. Participates in ultra running. Managed by reducing lifting ( squatting and deadlifting), warming up. Trainin-5 hr running (intervals, running,) was doing strength training but has since tapered per working with assistant athletic trainer Prior Treatments and Tests Pt reports has had multiple rounds of imaging for both hip and back Current Functional Impairments (Reported) Functional Limitations- Recreation/ lifting, running Hobbies PT-OP-C Subjective Start: 10/07/24 12:59 Freq: Status: Active Protocol: Document 01/12/25 17:04 [facility] (Rec: 01/12/25 18:27 [facility] [id number]) OP-PT Subjective Patient Comments Patient Comments Pt reports hasn't heard more about MRI yet PT-OP-E Functional Tests Start: 10/07/24 12:59 Freq: Status: Active Protocol: Document 10/07/24 12:59 NM (Rec: 10/07/24 13:49 NM [id number]) Functional Tests Squat Test Score hip IR with squat, valgus/ instability with SL squat; improved w/ less depth Comments 2 ea PT-OP-F Manual Assessment Start: 10/07/24 12:59 Freq: Status: Active Protocol: Document 10/07/24 12:59 NM (Rec: 10/07/24 16:24 NM [id number]) Manual Assessments Soft Tissue Assessment Soft Tissue Mobility Assessment L sided lumbar paraspinals hypotrophy L hip flexor tightness, TFL Joint Mobility Assessment Joint Mobility Assessment Hypomobility lumbar paraspinals with PA springing. Limitations in L hip AROM and PROM especially into hip IR and ER; bony end feel. PT-OP-G Mobility & Gait Start: 10/07/24 12:59 Freq: Status: Active Protocol: Document 10/07/24 12:59 NM (Rec: 10/07/24 16:24 NM [id number]) OP Gait Assessment Gait Gait Assistance Required: Independent Distance (Feet) 150 Comments Gait Comments Wide based gait, demos decreased L hip/lumbopelvic mobility during swing, pronation PT-OP-J Posture/Palpation/Skin Start: 10/07/24 12:59 Freq: Status: Active Protocol: Document 10/07/24 12:59 NM (Rec: 10/07/24 16:24 NM [id number]) Posture Evaluation Position Standing Head/C-Spine Posture Forward Head Shoulder Posture (L) Rounded,(R) Rounded Knee Posture (L) Genu Valgus,(R) Genu Valgus Ankle/Foot Posture (L) Pronated,(R) Pronated Foot Arch (L) Low Arch,(R) Low Arch Palpation Assessment Location L hip Palpation Details Tightness of hip flexors especially TFL, iliopsoas lumbar spine Palpation Details No tenderness PSIS, spinous processes, paraspinals No tenderness to glutes/ piriformis, or along sciatic nerve PT-OP-K Range of Motion Start: 10/07/24 12:59 Freq: Status: Active Protocol: Document 12/28/24 14:35 [facility] (Rec: 12/28/24 18:19 [facility] [id number]) Hip Goniometric Range of Motion Hip Left Internal Rotation 33 External Rotation 33 Comments IR tightness PT-OP-L Special Tests Start: 10/07/24 12:59 Freq: Status: Active Protocol: Document 10/07/24 12:59 NM (Rec: 10/07/24 13:49 NM [id number]) Special Tests Lumbar Spine Special Tests Slump Test Results + Ribera/quadrant Test Results - Hip Special Tests FADIR Test Results - Anterior Labral Test Test Results - Posterior Labral Test Test Results - Scour Test Test Results - PT-OP-M Strength Start: 10/07/24 12:59 Freq: Status: Active Protocol: Document 01/07/25 13:09 [facility] (Rec: 01/07/25 16:18 [facility] [id number]) Hip Strength Hip Manual Muscle Testing Right Flexion (L2) 5 Normal Extension (S1) 5 Normal Abduction 5 Normal Adduction 5 Normal External Rotation 5 Normal Internal Rotation 5 Normal Left Flexion (L2) 5 Normal Extension (S1) 5 Normal Abduction 5 Normal Adduction 5 Normal External Rotation 5 Normal Internal Rotation 5 Normal PT-OP-Q Treatments Start: 10/07/24 12:59 Freq: Status: Active Protocol: Document 01/12/25 17:04 [facility] (Rec: 01/12/25 18:27 [facility] [id number]) Therapeutic Exercises Sidelying Exercises side plank Sidelying Exercise Name coppenhagen on feet Side bilateral Equipment Used w/o wt and w/5lb wt on lower leg Reps/Minutes 30 sec ea Standing Exercises single leg squat Standing Exercise Name comfortable range-about 90 Side left Reps/Minutes 10 step down Standing Exercise Name 8 in, 12 in, 16 in Side left Reps/Minutes 2 ea Manual Therapy Treatment Consent Patient gave verbal consent for manual Yes treatment Soft Tissue Mobilization L hip Body Location L pectineus, adductor aleksander and longus, iliopsoas insertion Mobilization Type Sustained Pressure Intensity/Depth Moderate Joint Mobilizations pubic bone Comments L inf glide c/r Hips Comments L distraction w/flex add, inf and lat glide w/flex and IR x/ r PT-OP-T Assessment and Plan Start: 10/07/24 12:59 Freq: Status: Active Protocol: Document 01/12/25 17:04 [facility] (Rec: 01/12/25 18:27 [facility] [id number]) Physical Therapy Assessment Goals Three Impairment pain with squatting Raw Finish Mill Operator Goal (LTG) Pt will demo improved stability with 5/10 reps of single leg squat B in order to demonstrate improved hip ROM and stability for running 11/11/24: initiated captain pickens's single leg squat at wall; progressing toward slier squats and single leg squats on step 12/02/24: step down squats with poor control and cueing for glute activation 12/30-not full control LTG Duration 8 weeks PROGRESSINg Two Impairment L hip rotation impaired: IR 22 deg, ER 30 deg Raw Finish Mill Operator Goal (LTG) Pt will increase L hip IR >30 deg and L hip ER >35 deg in order to improve hip mobility for running 12/02/24, 11/11/24: L hip IR and ER 30 deg 12/30-33 ea LTG Duration 8 weeks PROGRESSING One Impairment pain with sleeping and sitting tolerance Correction Goal (LTG) Pt will decrease SHARAN <12% in order to demonstrate improved symptom management 12/02/24: 6% SHARAN, LEFS 77/80 LTG Duration MET Assessment Summary Assessment Pt has no pain w/resisted hip flex in add position but has pain w/resisted add in fully ext or flex 90 or greater position. improved L hip flex/ add ROM prior to pinch after manual. able to do 12 in step down and partial squat w/o inc pain Physical Therapy Plan Frequency and Duration Frequency of Treatment 1x/Week Duration of treatment (weeks) 8 Plan of Care Start Date 12/28/24 Plan of Care End Date 02/24/25 Next Visit Focus/Plan Next Note Type Treatment Note Next Visit Plan check in further about pubic inf glide , advance step downs
--- NOTE | 2025-01-14 18:24 | PT.OTN ---
Current Diagnoses Low back pain, unspecified (01/14/25) Physical Therapy Treatment Note PT-OP-A Visit Information Start: 10/07/24 12:59 Freq: Status: Active Protocol: Document 01/14/25 17:06 [facility] (Rec: 01/14/25 18:24 [facility] [id number]) Out-Patient Physical Therapy Visit Information Visit Information Visit Type Treatment Note Visit Start Time 17:05 Visit Stop Time 17:45 Visit Number 13 Number of FRAME STRIPPER AND CRUSHER Visits 0 PT-OP-B Current Condition Start: 10/07/24 12:59 Freq: Status: Active Protocol: Document 10/07/24 12:59 NM (Rec: 10/07/24 13:49 NM [id number]) Current Condition History of Current Condition Onset Date 2021-present History of Current Condition Pt presents to clinic with L hip sciatica in deep glute region and anterior L hip pain . 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 Original onset of pain occured while doing lots of physical training and heavy lifting; he thinks he blew out his back for 1 month while deadlifting, gradual improvement. Occurred November 2021. Has had significant past PT and work up via imaging, chiropractors, injections. Previously had numbness/ tingling into LLE in glute but no longer has same neural symptoms. Improvement has occurred with move to less stressful job. In November 2023, he was doing single leg squats on an elevated surface, felt like the hip gave out deep in the hip. Worse with sprinting, lack of motion. Denies clicking, popping, and locking . He is planning to get a referral for ITB pain. Participates in ultra running. Managed by reducing lifting ( squatting and deadlifting), warming up. Trainin-5 hr running (intervals, running,) was doing strength training but has since tapered per working with personal injury paralegal Prior Treatments and Tests Pt reports has had multiple rounds of imaging for both hip and back Current Functional Impairments (Reported) Functional Limitations- Recreation/ lifting, running Hobbies PT-OP-C Subjective Start: 10/07/24 12:59 Freq: Status: Active Protocol: Document 01/14/25 17:06 [facility] (Rec: 01/14/25 18:24 [facility] [id number]) OP-PT Subjective Patient Comments Patient Comments Pt has MRI scheduled tonight PT-OP-E Functional Tests Start: 10/07/24 12:59 Freq: Status: Active Protocol: Document 10/07/24 12:59 NM (Rec: 10/07/24 13:49 NM [id number]) Functional Tests Squat Test Score hip IR with squat, valgus/ instability with SL squat; improved w/ less depth Comments 2 ea PT-OP-F Manual Assessment Start: 10/07/24 12:59 Freq: Status: Active Protocol: Document 10/07/24 12:59 NM (Rec: 10/07/24 16:24 NM [id number]) Manual Assessments Soft Tissue Assessment Soft Tissue Mobility Assessment L sided lumbar paraspinals hypotrophy L hip flexor tightness, TFL Joint Mobility Assessment Joint Mobility Assessment Hypomobility lumbar paraspinals with PA springing. Limitations in L hip AROM and PROM especially into hip IR and ER; bony end feel. PT-OP-G Mobility & Gait Start: 10/07/24 12:59 Freq: Status: Active Protocol: Document 10/07/24 12:59 NM (Rec: 10/07/24 16:24 NM [id number]) OP Gait Assessment Gait Gait Assistance Required: Independent Distance (Feet) 150 Comments Gait Comments Wide based gait, demos decreased L hip/lumbopelvic mobility during swing, pronation PT-OP-J Posture/Palpation/Skin Start: 10/07/24 12:59 Freq: Status: Active Protocol: Document 10/07/24 12:59 NM (Rec: 10/07/24 16:24 NM [id number]) Posture Evaluation Position Standing Head/C-Spine Posture Forward Head Shoulder Posture (L) Rounded,(R) Rounded Knee Posture (L) Genu Valgus,(R) Genu Valgus Ankle/Foot Posture (L) Pronated,(R) Pronated Foot Arch (L) Low Arch,(R) Low Arch Palpation Assessment Location L hip Palpation Details Tightness of hip flexors especially TFL, iliopsoas lumbar spine Palpation Details No tenderness PSIS, spinous processes, paraspinals No tenderness to glutes/ piriformis, or along sciatic nerve PT-OP-K Range of Motion Start: 10/07/24 12:59 Freq: Status: Active Protocol: Document 12/28/24 14:35 [facility] (Rec: 12/28/24 18:19 [facility] [id number]) Hip Goniometric Range of Motion Hip Left Internal Rotation 33 External Rotation 33 Comments IR tightness PT-OP-L Special Tests Start: 10/07/24 12:59 Freq: Status: Active Protocol: Document 10/07/24 12:59 NM (Rec: 10/07/24 13:49 NM [id number]) Special Tests Lumbar Spine Special Tests Slump Test Results + Ribera/quadrant Test Results - Hip Special Tests FADIR Test Results - Anterior Labral Test Test Results - Posterior Labral Test Test Results - Scour Test Test Results - PT-OP-M Strength Start: 10/07/24 12:59 Freq: Status: Active Protocol: Document 01/07/25 13:09 [facility] (Rec: 01/07/25 16:18 [facility] [id number]) Hip Strength Hip Manual Muscle Testing Right Flexion (L2) 5 Normal Extension (S1) 5 Normal Abduction 5 Normal Adduction 5 Normal External Rotation 5 Normal Internal Rotation 5 Normal Left Flexion (L2) 5 Normal Extension (S1) 5 Normal Abduction 5 Normal Adduction 5 Normal External Rotation 5 Normal Internal Rotation 5 Normal PT-OP-Q Treatments Start: 10/07/24 12:59 Freq: Status: Active Protocol: Document 01/14/25 17:06 [facility] (Rec: 01/14/25 18:24 [facility] [id number]) Manual Therapy Treatment Consent Patient gave verbal consent for manual Yes treatment Soft Tissue Mobilization L hip Body Location L psoas proximal and inguinal ligament Mobilization Type Sustained Pressure Intensity/Depth Moderate Joint Mobilizations lumbar Comments upglide L1 and 2 c/r seated; UPA L L1 and 2 c/r pubic bone Comments L inf glide c/r innominate Comments ext L c/r and supine ER c/r Hips Comments post glide PT-OP-T Assessment and Plan Start: 10/07/24 12:59 Freq: Status: Active Protocol: Document 01/14/25 17:06 [facility] (Rec: 01/14/25 18:24 [facility] [id number]) Physical Therapy Assessment Goals Three Impairment pain with squatting Telecommunications Line Installer Goal (LTG) Pt will demo improved stability with 5/10 reps of single leg squat B in order to demonstrate improved hip ROM and stability for running 11/11/24: initiated captain pickens's single leg squat at wall; progressing toward slier squats and single leg squats on step 12/02/24: step down squats with poor control and cueing for glute activation 12/30-not full control LTG Duration 8 weeks PROGRESSINg Two Impairment L hip rotation impaired: IR 22 deg, ER 30 deg Telecommunications Line Installer Goal (LTG) Pt will increase L hip IR >30 deg and L hip ER >35 deg in order to improve hip mobility for running 12/02/24, 11/11/24: L hip IR and ER 30 deg 12/30-33 ea LTG Duration 8 weeks PROGRESSING One Impairment pain with sleeping and sitting tolerance [facility] Goal (LTG) Pt will decrease SHARAN <12% in order to demonstrate improved symptom management 12/02/24: 6% SHARAN, LEFS 77/80 LTG Duration MET Assessment Summary Assessment minor change in pain in standing abd after manual. no pain in s/l w/opp knee bent w/ add but pain w/opp knee strigaht. Physical Therapy Plan Frequency and Duration Frequency of Treatment 1x/Week Duration of treatment (weeks) 8 Plan of Care Start Date 12/28/24 Plan of Care End Date 02/24/25 Next Visit Focus/Plan Next Note Type Treatment Note Next Visit Plan check in further about pubic inf glide , advance step downs
--- NOTE | 2025-01-19 18:19 | PT.OTN ---
Current Diagnoses Low back pain, unspecified (01/19/25) Physical Therapy Treatment Note PT-OP-A Visit Information Start: 10/07/24 12:59 Freq: Status: Active Protocol: Document 01/19/25 17:00 [facility] (Rec: 01/19/25 18:19 [facility] [id number]) Out-Patient Physical Therapy Visit Information Visit Information Visit Type Treatment Note Visit Start Time 17:00 Visit Stop Time 17:42 Visit Number 14 Number of CLERICAL WAREHOUSEMAN Visits 0 PT-OP-B Current Condition Start: 10/07/24 12:59 Freq: Status: Active Protocol: Document 10/07/24 12:59 NM (Rec: 10/07/24 13:49 NM [id number]) Current Condition History of Current Condition Onset Date 2021-present History of Current Condition Pt presents to clinic with L hip sciatica in deep glute region and anterior L hip pain . 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 Original onset of pain occured while doing lots of physical training and heavy lifting; he thinks he blew out his back for 1 month while deadlifting, gradual improvement. Occurred November 2021. Has had significant past PT and work up via imaging, chiropractors, injections. Previously had numbness/ tingling into LLE in glute but no longer has same neural symptoms. Improvement has occurred with move to less stressful job. In November 2023, he was doing single leg squats on an elevated surface, felt like the hip gave out deep in the hip. Worse with sprinting, lack of motion. Denies clicking, popping, and locking . He is planning to get a referral for ITB pain. Participates in ultra running. Managed by reducing lifting ( squatting and deadlifting), warming up. Trainin-5 hr running (intervals, running,) was doing strength training but has since tapered per working with applications trainer Prior Treatments and Tests Pt reports has had multiple rounds of imaging for both hip and back Current Functional Impairments (Reported) Functional Limitations- Recreation/ lifting, running Hobbies PT-OP-C Subjective Start: 10/07/24 12:59 Freq: Status: Active Protocol: Document 01/19/25 17:00 [facility] (Rec: 01/19/25 18:19 [facility] [id number]) OP-PT Subjective Patient Comments Patient Comments pt reports he feels like he is squatting lower. PT-OP-E Functional Tests Start: 10/07/24 12:59 Freq: Status: Active Protocol: Document 10/07/24 12:59 NM (Rec: 10/07/24 13:49 NM [id number]) Functional Tests Squat Test Score hip IR with squat, valgus/ instability with SL squat; improved w/ less depth Comments 2 ea PT-OP-F Manual Assessment Start: 10/07/24 12:59 Freq: Status: Active Protocol: Document 10/07/24 12:59 NM (Rec: 10/07/24 16:24 NM [id number]) Manual Assessments Soft Tissue Assessment Soft Tissue Mobility Assessment L sided lumbar paraspinals hypotrophy L hip flexor tightness, TFL Joint Mobility Assessment Joint Mobility Assessment Hypomobility lumbar paraspinals with PA springing. Limitations in L hip AROM and PROM especially into hip IR and ER; bony end feel. PT-OP-G Mobility & Gait Start: 10/07/24 12:59 Freq: Status: Active Protocol: Document 10/07/24 12:59 NM (Rec: 10/07/24 16:24 NM [id number]) OP Gait Assessment Gait Gait Assistance Required: Independent Distance (Feet) 150 Comments Gait Comments Wide based gait, demos decreased L hip/lumbopelvic mobility during swing, pronation PT-OP-J Posture/Palpation/Skin Start: 10/07/24 12:59 Freq: Status: Active Protocol: Document 10/07/24 12:59 NM (Rec: 10/07/24 16:24 NM [id number]) Posture Evaluation Position Standing Head/C-Spine Posture Forward Head Shoulder Posture (L) Rounded,(R) Rounded Knee Posture (L) Genu Valgus,(R) Genu Valgus Ankle/Foot Posture (L) Pronated,(R) Pronated Foot Arch (L) Low Arch,(R) Low Arch Palpation Assessment Location L hip Palpation Details Tightness of hip flexors especially TFL, iliopsoas lumbar spine Palpation Details No tenderness PSIS, spinous processes, paraspinals No tenderness to glutes/ piriformis, or along sciatic nerve PT-OP-K Range of Motion Start: 10/07/24 12:59 Freq: Status: Active Protocol: Document 12/28/24 14:35 [facility] (Rec: 12/28/24 18:19 [facility] [id number]) Hip Goniometric Range of Motion Hip Left Internal Rotation 33 External Rotation 33 Comments IR tightness PT-OP-L Special Tests Start: 10/07/24 12:59 Freq: Status: Active Protocol: Document 10/07/24 12:59 NM (Rec: 10/07/24 13:49 NM [id number]) Special Tests Lumbar Spine Special Tests Slump Test Results + Ribera/quadrant Test Results - Hip Special Tests FADIR Test Results - Anterior Labral Test Test Results - Posterior Labral Test Test Results - Scour Test Test Results - PT-OP-M Strength Start: 10/07/24 12:59 Freq: Status: Active Protocol: Document 01/07/25 13:09 [facility] (Rec: 01/07/25 16:18 [facility] [id number]) Hip Strength Hip Manual Muscle Testing Right Flexion (L2) 5 Normal Extension (S1) 5 Normal Abduction 5 Normal Adduction 5 Normal External Rotation 5 Normal Internal Rotation 5 Normal Left Flexion (L2) 5 Normal Extension (S1) 5 Normal Abduction 5 Normal Adduction 5 Normal External Rotation 5 Normal Internal Rotation 5 Normal PT-OP-Q Treatments Start: 10/07/24 12:59 Freq: Status: Active Protocol: Document 01/19/25 17:00 [facility] (Rec: 01/19/25 18:19 [facility] [id number]) Therapeutic Exercises Standing Exercises single leg squat Standing Exercise Name 1.comfortable range 2. w/UE assist Side left step down Standing Exercise Name 16 in Side left Reps/Minutes 3 single leg RDL Standing Exercise Name whip rot Side bilateral Manual Therapy Treatment Consent Patient gave verbal consent for manual Yes treatment Joint Mobilizations foot/ankle Comments distraction and lat tilt calcaneus Talar distraction and lat glide lat and sup glide navicular med glide cuneiform 1 and 3 c/ r PT-OP-T Assessment and Plan Start: 10/07/24 12:59 Freq: Status: Active Protocol: Document 01/19/25 17:00 [facility] (Rec: 01/19/25 18:19 [facility] [id number]) Physical Therapy Assessment Goals Three Impairment pain with squatting Long-Term Goal (LTG) Pt will demo improved stability with 5/10 reps of single leg squat B in order to demonstrate improved hip ROM and stability for running 11/11/24: initiated captain pickens's single leg squat at wall; progressing toward slier squats and single leg squats on step 12/02/24: step down squats with poor control and cueing for glute activation 12/30-not full control LTG Duration 8 weeks PROGRESSINg Two Impairment L hip rotation impaired: IR 22 deg, ER 30 deg Long-Term Goal (LTG) Pt will increase L hip IR >30 deg and L hip ER >35 deg in order to improve hip mobility for running 12/02/24, 11/11/24: L hip IR and ER 30 deg 12/30-33 ea LTG Duration 8 weeks PROGRESSING One Impairment pain with sleeping and sitting tolerance Long-Term Goal (LTG) Pt will decrease SHARAN <12% in order to demonstrate improved symptom management 12/02/24: 6% SHARAN, LEFS 77/80 LTG Duration MET Assessment Summary Assessment Pt was IR at hip d/t dec foot mobility in L foot causing pain and pinching in hip after 90 deg SL squat and improved to much dec pain w/deeper squat w/limit being more stability vs pain after manual to foot. He is improving is his ability to functionally squat with session. Physical Therapy Plan Frequency and Duration Frequency of Treatment 1x/Week Duration of treatment (weeks) 8 Plan of Care Start Date 12/28/24 Plan of Care End Date 02/24/25 Therapeutic Interventions Therapeutic Interventions Balance Training,Gait Training ,Home Exercise Program,Joint Mobilizations,Manual Therapy, Neuromuscular Re-education, Orthotic/Prosthetic Management ,Patient/Caregiver Education, Self-Care/Home Management, Sensory Integration,Soft Tissue Mobilization,Taping, Therapeutic Activities, Therapeutic Exercises Modalities Cold Pack/Ice Massage,Electric Stimulation,Hot Packs, Traction- Mechanical, Ultrasound Next Visit Focus/Plan Next Note Type Treatment Note Next Visit Plan squat mechanics, work on add strength in different planes
--- NOTE | 2025-02-03 09:03 | PT.OTN ---
Current Diagnoses Low back pain, unspecified (02/03/25) Physical Therapy Treatment Note PT-OP-A Visit Information Start: 10/07/24 12:59 Freq: Status: Active Protocol: Document 02/03/25 07:29 [facility] (Rec: 02/03/25 09:03 [facility] [id number]) Out-Patient Physical Therapy Visit Information Visit Information Visit Type Treatment Note Visit Start Time 07:32 Visit Stop Time 08:15 Visit Number 15 Number of DIRECTOR POST Visits 0 PT-OP-B Current Condition Start: 10/07/24 12:59 Freq: Status: Active Protocol: Document 10/07/24 12:59 NM (Rec: 10/07/24 13:49 NM [id number]) Current Condition History of Current Condition Onset Date 2021-present History of Current Condition Pt presents to clinic with L hip sciatica in deep glute region and anterior L hip pain . 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 Original onset of pain occured while doing lots of physical training and heavy lifting; he thinks he blew out his back for 1 month while deadlifting, gradual improvement. Occurred November 2021. Has had significant past PT and work up via imaging, chiropractors, injections. Previously had numbness/ tingling into LLE in glute but no longer has same neural symptoms. Improvement has occurred with move to less stressful job. In November 2023, he was doing single leg squats on an elevated surface, felt like the hip gave out deep in the hip. Worse with sprinting, lack of motion. Denies clicking, popping, and locking . He is planning to get a referral for ITB pain. Participates in ultra running. Managed by reducing lifting ( squatting and deadlifting), warming up. Trainin-5 hr running (intervals, running,) was doing strength training but has since tapered per working with retail personal banker Prior Treatments and Tests Pt reports has had multiple rounds of imaging for both hip and back Current Functional Impairments (Reported) Functional Limitations- Recreation/ lifting, running Hobbies PT-OP-C Subjective Start: 10/07/24 12:59 Freq: Status: Active Protocol: Document 02/03/25 07:29 [facility] (Rec: 02/03/25 09:03 [facility] [id number]) OP-PT Subjective Patient Comments Patient Comments Did a 10 mile harder run (inc tempo and challenges and on paved trail) and felt some hip pain. Feels like whenever he starts lifting again, he gets back pain PT-OP-E Functional Tests Start: 10/07/24 12:59 Freq: Status: Active Protocol: Document 10/07/24 12:59 NM (Rec: 10/07/24 13:49 NM [id number]) Functional Tests Squat Test Score hip IR with squat, valgus/ instability with SL squat; improved w/ less depth Comments 2 ea PT-OP-F Manual Assessment Start: 10/07/24 12:59 Freq: Status: Active Protocol: Document 10/07/24 12:59 NM (Rec: 10/07/24 16:24 NM [id number]) Manual Assessments Soft Tissue Assessment Soft Tissue Mobility Assessment L sided lumbar paraspinals hypotrophy L hip flexor tightness, TFL Joint Mobility Assessment Joint Mobility Assessment Hypomobility lumbar paraspinals with PA springing. Limitations in L hip AROM and PROM especially into hip IR and ER; bony end feel. PT-OP-G Mobility & Gait Start: 10/07/24 12:59 Freq: Status: Active Protocol: Document 10/07/24 12:59 NM (Rec: 10/07/24 16:24 NM [id number]) OP Gait Assessment Gait Gait Assistance Required: Independent Distance (Feet) 150 Comments Gait Comments Wide based gait, demos decreased L hip/lumbopelvic mobility during swing, pronation PT-OP-J Posture/Palpation/Skin Start: 10/07/24 12:59 Freq: Status: Active Protocol: Document 10/07/24 12:59 NM (Rec: 10/07/24 16:24 NM [id number]) Posture Evaluation Position Standing Head/C-Spine Posture Forward Head Shoulder Posture (L) Rounded,(R) Rounded Knee Posture (L) Genu Valgus,(R) Genu Valgus Ankle/Foot Posture (L) Pronated,(R) Pronated Foot Arch (L) Low Arch,(R) Low Arch Palpation Assessment Location L hip Palpation Details Tightness of hip flexors especially TFL, iliopsoas lumbar spine Palpation Details No tenderness PSIS, spinous processes, paraspinals No tenderness to glutes/ piriformis, or along sciatic nerve PT-OP-K Range of Motion Start: 10/07/24 12:59 Freq: Status: Active Protocol: Document 12/28/24 14:35 [facility] (Rec: 12/28/24 18:19 [facility] [id number]) Hip Goniometric Range of Motion Hip Left Internal Rotation 33 External Rotation 33 Comments IR tightness PT-OP-L Special Tests Start: 10/07/24 12:59 Freq: Status: Active Protocol: Document 10/07/24 12:59 NM (Rec: 10/07/24 13:49 NM [id number]) Special Tests Lumbar Spine Special Tests Slump Test Results + Ribera/quadrant Test Results - Hip Special Tests FADIR Test Results - Anterior Labral Test Test Results - Posterior Labral Test Test Results - Scour Test Test Results - PT-OP-M Strength Start: 10/07/24 12:59 Freq: Status: Active Protocol: Document 01/07/25 13:09 [facility] (Rec: 01/07/25 16:18 [facility] [id number]) Hip Strength Hip Manual Muscle Testing Right Flexion (L2) 5 Normal Extension (S1) 5 Normal Abduction 5 Normal Adduction 5 Normal External Rotation 5 Normal Internal Rotation 5 Normal Left Flexion (L2) 5 Normal Extension (S1) 5 Normal Abduction 5 Normal Adduction 5 Normal External Rotation 5 Normal Internal Rotation 5 Normal PT-OP-Q Treatments Start: 10/07/24 12:59 Freq: Status: Active Protocol: Document 02/03/25 07:29 [facility] (Rec: 02/03/25 09:03 [facility] [id number]) Therapeutic Exercises Standing Exercises flex Standing Exercise Name seated and standing Side bilateral Reps/Minutes 2 ea Comments cues push through legs then segmental single leg squat Standing Exercise Name w/paloff press Side left Reps/Minutes 8 single leg RDL Standing Exercise Name 1.with hip rot 2. w/10lb wt passes Side left Reps/Minutes 1. 3 reps 2. 8 Manual Therapy Treatment Consent Patient gave verbal consent for manual Yes treatment Soft Tissue Mobilization lumbar spine Comments in cat cow MFR seated fwd flex w/rolling down paraspinals 2x L hip Body Location L piriformis/glutes Comments w/IR/ER Joint Mobilizations lumbar Comments gapping L4-5, L3-4 cat/cow position sacrum Comments UPA L w/L hip rot innominate Comments L caudal, IR, add c/r Hips Comments on axis IR c/r w/manual facilitation at end range PT-OP-T Assessment and Plan Start: 10/07/24 12:59 Freq: Status: Active Protocol: Document 02/03/25 07:29 [facility] (Rec: 02/03/25 09:03 [facility] [id number]) Physical Therapy Assessment Goals Three Impairment pain with squatting Usp Goal (LTG) Pt will demo improved stability with 5/10 reps of single leg squat B in order to demonstrate improved hip ROM and stability for running 11/11/24: initiated captain pickens's single leg squat at wall; progressing toward slier squats and single leg squats on step 12/02/24: step down squats with poor control and cueing for glute activation 12/30-not full control LTG Duration 8 weeks PROGRESSINg Two Impairment L hip rotation impaired: IR 22 deg, ER 30 deg Usp Goal (LTG) Pt will increase L hip IR >30 deg and L hip ER >35 deg in order to improve hip mobility for running 12/02/24, 11/11/24: L hip IR and ER 30 deg 12/30-33 ea LTG Duration 8 weeks PROGRESSING One Impairment pain with sleeping and sitting tolerance Transportation Engineer Goal (LTG) Pt will decrease SHARAN <12% in order to demonstrate improved symptom management 12/02/24: 6% SHARAN, LEFS 77/80 LTG Duration MET Assessment Summary Assessment Pt had much improved fwd flex w/less pain and catching during the motion after manual treatment and improved pelvis position. did well with new exercises. Physical Therapy Plan Frequency and Duration Frequency of Treatment 1x/Week Duration of treatment (weeks) 8 Plan of Care Start Date 12/28/24 Plan of Care End Date 02/24/25 Next Visit Focus/Plan Next Note Type Treatment Note Next Visit Plan work on neutral spine w/ lifting, work on add strength in different planes
--- NOTE | 2025-03-17 09:55 | PT-OP ANOTE ---
Pt called re: cancellation of last appt and asked to call back re: plan for PT.
--- NOTE | 2025-03-17 10:44 | PT.OPDS ---
Current Diagnoses Low back pain, unspecified (02/03/25) Visit Care Team Role Provider Type Kev Chiu MD Attending Provider Non-Staff Family Provider Primary Care Provider Referring Provider Specialty: Medical Address: [address] [place] [address], [id number] Email: Visit Number Visit Number 15 Discharge Summary PT-OP-B Current Condition Start: 10/07/24 12:59 Freq: Status: Active Protocol: Document 10/07/24 12:59 NM (Rec: 10/07/24 13:49 NM [id number]) Current Condition History of Current Condition Onset Date 2021-present History of Current Pt presents to clinic with L hip sciatica in deep Condition glute region and anterior L hip pain. 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 Original onset of pain occured while doing lots of physical training and heavy lifting; he thinks he blew out his back for 1 month while deadlifting, gradual improvement. Occurred November 2021. Has had significant past PT and work up via imaging, chiropractors, injections. Previously had numbness/ tingling into LLE in glute but no longer has same neural symptoms. Improvement has occurred with move to less stressful job. In November 2023, he was doing single leg squats on an elevated surface, felt like the hip gave out deep in the hip. Worse with sprinting, lack of motion. Denies clicking, popping, and locking. He is planning to get a referral for ITB pain. Participates in ultra running. Managed by reducing lifting ( squatting and deadlifting), warming up. Trainin-5 hr running (intervals, running,) was doing strength training but has since tapered per working with personal security specialist Prior Treatments and Pt reports has had multiple rounds of imaging for both Tests hip and back Current Functional Impairments (Reported) Functional lifting, running Limitations- Recreation/Hobbies PT-OP-C Subjective Start: 10/07/24 12:59 Freq: Status: Active Protocol: Document 02/03/25 07:29 [facility] (Rec: 02/03/25 09:03 [facility] [id number]) OP-PT Subjective Patient Comments Patient Comments Did a 10 mile harder run (inc tempo and challenges and on paved trail) and felt some hip pain. Feels like whenever he starts lifting again, he gets back pain PT-OP-E Functional Tests Start: 10/07/24 12:59 Freq: Status: Active Protocol: Document 10/07/24 12:59 NM (Rec: 10/07/24 13:49 NM [id number]) Functional Tests Squat Test Score hip IR with squat, valgus/instability with SL squat; improved w/ less depth Comments 2 ea PT-OP-F Manual Assessment Start: 10/07/24 12:59 Freq: Status: Active Protocol: Document 10/07/24 12:59 NM (Rec: 10/07/24 16:24 NM [id number]) Manual Assessments Soft Tissue Assessment Soft Tissue Mobility L sided lumbar paraspinals hypotrophy Assessment L hip flexor tightness, TFL Joint Mobility Assessment Joint Mobility Hypomobility lumbar paraspinals with PA springing. Assessment Limitations in L hip AROM and PROM especially into hip IR and ER; bony end feel. PT-OP-G Mobility & Gait Start: 10/07/24 12:59 Freq: Status: Active Protocol: Document 10/07/24 12:59 NM (Rec: 10/07/24 16:24 NM [id number]) OP Gait Assessment Gait Gait Assistance Independent Required: Distance (Feet) 150 Comments Gait Comments Wide based gait, demos decreased L hip/lumbopelvic mobility during swing, pronation PT-OP-J Posture/Palpation/Skin Start: 10/07/24 12:59 Freq: Status: Active Protocol: Document 10/07/24 12:59 NM (Rec: 10/07/24 16:24 NM [id number]) Posture Evaluation Position Standing Head/C-Spine Posture Forward Head Shoulder Posture (L) Rounded,(R) Rounded Knee Posture (L) Genu Valgus,(R) Genu Valgus Ankle/Foot Posture (L) Pronated,(R) Pronated Foot Arch (L) Low Arch,(R) Low Arch Palpation Assessment Location L hip Palpation Details Tightness of hip flexors especially TFL, iliopsoas lumbar spine Palpation Details No tenderness PSIS, spinous processes, paraspinals No tenderness to glutes/piriformis, or along sciatic nerve PT-OP-K Range of Motion Start: 10/07/24 12:59 Freq: Status: Active Protocol: Document 12/28/24 14:35 [facility] (Rec: 12/28/24 18:19 [facility] [id number]) Hip Goniometric Range of Motion Hip Left Internal Rotation 33 External Rotation 33 Comments IR tightness PT-OP-L Special Tests Start: 10/07/24 12:59 Freq: Status: Active Protocol: Document 10/07/24 12:59 NM (Rec: 10/07/24 13:49 NM [id number]) Special Tests Lumbar Spine Special Tests Slump Test Results + Ribera/quadrant Test Results - Hip Special Tests FADIR Test Results - Anterior Labral Test Test Results - Posterior Labral Test Test Results - Scour Test Test Results - PT-OP-M Strength Start: 10/07/24 12:59 Freq: Status: Active Protocol: Document 01/07/25 13:09 [facility] (Rec: 01/07/25 16:18 [facility] [id number]) Hip Strength Hip Manual Muscle Testing Right Flexion (L2) 5 Normal Extension (S1) 5 Normal Abduction 5 Normal Adduction 5 Normal External Rotation 5 Normal Internal Rotation 5 Normal Left Flexion (L2) 5 Normal Extension (S1) 5 Normal Abduction 5 Normal Adduction 5 Normal External Rotation 5 Normal Internal Rotation 5 Normal PT-OP-T Assessment and Plan Start: 10/07/24 12:59 Freq: Status: Active Protocol: Document 03/17/25 10:43 [facility] (Rec: 03/17/25 10:44 [facility] [id number]) Physical Therapy Assessment Goals Three Impairment pain with squatting Manager Safe Goal (LTG) Pt will demo improved stability with 5/10 reps of single leg squat B in order to demonstrate improved hip ROM and stability for running 11/11/24: initiated captain pickens's single leg squat at wall; progressing toward slier squats and single leg squats on step 12/02/24: step down squats with poor control and cueing for glute activation 12/30-not full control LTG Duration 8 weeks PROGRESSINg Two Impairment L hip rotation impaired: IR 22 deg, ER 30 deg Manager Safe Goal (LTG) Pt will increase L hip IR >30 deg and L hip ER >35 deg in order to improve hip mobility for running 12/02/24, 11/11/24: L hip IR and ER 30 deg 12/30-33 ea LTG Duration 8 weeks PROGRESSING One Impairment pain with sleeping and sitting tolerance Manager Safe Goal (LTG) Pt will decrease SHARAN <12% in order to demonstrate improved symptom management 12/02/24: 6% SHARAN, LEFS 77/80 LTG Duration MET Assessment Summary Assessment pt did make some progress w/PT with improved ability to SL squat but still had pinching with flex especially when combined with add likely d/t labral tear later found in MRI. Called pt after cancellation of last appt and pt ready for DC. Physical Therapy Plan Discharge Physical Therapy Discharge Reasons Patient Request
== END 2025-03-19 10:37 | disposition home or self-care (01) ==
LOC: PHYS 07:30
PROVIDERS: Family Provider Student in an Organized Health Care Education/Training Program; PCP Student in an Organized Health Care Education/Training Program; Referring Provider Student in an Organized Health Care Education/Training Program; Visit Provider Student in an Organized Health Care Education/Training Program
DX: M54.50 Low back pain, unspecified (principal)
CPT/HCPCS: 97110; 97112; 97140; 97161; 97535